=== PATIENT | female | born 1950 | race Caucasian/White ===

== ENCOUNTER 2018-03-15 08:55 | Day surgery (SDC) | payer MEDICARE, OTHER ==
[2018-03-14 09:52] LABS: HEMATOCRIT 38.2 % (35.0-45.0); HEMOGLOBIN 12.4 g/dl (12.0-16.0); MEAN CORPUSCULAR HEMOGLOBIN 29.8 PG (27.0-31.0); MEAN CORPUSCULAR HGB CONC 32.6 % (33.0-36.5); MEAN CORPUSCULAR VOLUME 91.4 FL (78-98); MEAN PLATELET VOLUME 12.8 FL (7.4-10.4); PLATELET COUNT 172 X10'3 (140-440); WHITE BLOOD COUNT 9.9 X10'3 (4.5-11.0)
[2018-03-14 10:01] LABS: PARTIAL THROMBOPLASTIN TIME 24 SECONDS (22-32); PROTHROMBIN TIME 10.8 SECONDS (9.0-12.0); RED BLOOD COUNT 4.21 X10'6 (4.20-5.60)
[2018-03-14 10:04] LABS: ANION GAP 12 (8-16); BLOOD UREA NITROGEN 10 MG/DL (7-18); BUN/CREATININE RATIO 13.2 (6.6-38.0); CALCIUM 8.4 MG/DL (8.5-10.1); CHLORIDE 103 MMOL/L (99-107); CREATININE 0.76 MG/DL (0.40-0.90); GLUCOSE 165 MG/DL (70-104); LARGE PLATELETS FEW; PLATELET ESTIMATE NORMAL; POTASSIUM 4.1 MMOL/L (3.5-5.1); SODIUM 141 MMOL/L (135-145); TOTAL CARBON DIOXIDE 26.1 MMOL/L (24-32); TOTAL CELLS COUNTED 100; eGFR 76 ML/MIN
[2018-03-14 10:05] LABS: ACANTHOCYTES FEW
[2018-03-14 10:06] LABS: MICROCYTOSIS FEW
[2018-03-15] VITALS (14 sets, daily range): BP systolic 73–182; BP diastolic 37–86
[~2018-03-15] VITALS: Ht 165.1 cm; Wt 89.8 kg
[~2018-03-15 08:55] MED LIST: ALBU8.5H8 IH; ASPI-611 PO; CARV-50 PO; FERR325T32 PO; FURO20TA4 PO; INSU100V9 SQ; ISOS60TA4 PO; LISI30TA4 PO; NITR0.4T51 SL; OXYC-150 PO; PANT40TA4 PO; PRAM0.5T3 PO; PRAV40TA3 PO; SERT100T PO; SPIR25TA5 PO; TIZA4CAP6 PO; TRAM50TA2 PO
[2018-03-15] MEDS ORDERED: normal saline 1000ml 1,000 ML IV SCH (09:40)
[2018-03-15] MEDS ORDERED: diphenhydrAMINE 25mg capsule PO PRN (09:40)
[2018-03-15] MEDS ORDERED: LORazepam 0.5 MG tablet PO PRN (09:40)
[2018-03-15] MEDS ORDERED: HYDR-565 PO (09:44)
[2018-03-15] MEDS ORDERED: BUDE10.2 INH (09:44)
[2018-03-15] MEDS ORDERED: METF-438 PO ×2 (09:44)
[2018-03-15] MEDS ORDERED: midazolam 2 mg/2 ml injection ONE (12:25)
[2018-03-15] MEDS ORDERED: heparin 1,000unit/ml 10ml vial 10 ML ONE (12:25)
[2018-03-15] MEDS ORDERED: LIDOcaine 1% 30ml preserv. free vial ONE (12:25)
[2018-03-15] MEDS ORDERED: fentaNYL/PF 50MCG/1 ML 2ML syringe ONE (12:25)
[2018-03-15] MEDS ORDERED: nitroGLYCERIN-Tridil 50MG/D5W 250 ML IV ONE (12:25)
[2018-03-15] MEDS ORDERED: iohexol 350 MG/ML 50ML vial IV ONE (12:25)
[2018-03-15] MEDS ORDERED: iohexol 350MG/ML 100ml bottle IV ONE (12:25)
[2018-03-15] MEDS ORDERED: morphine 2 MG/ML inj. syringe IV PRN (15:10)
[2018-03-15] MEDS ORDERED: morphine 4 MG/ML inj SYRINge IV PRN (15:10)
[2018-03-15] MEDS ORDERED: HYDROcodone/acetaminophen 10/325mg tab PO PRN (16:15)
[2018-03-15] MEDS ORDERED: OXAZEpam 15mg capsule PO PRN (16:15)
== END 2018-03-15 19:45 | disposition home or self-care (01) ==
LOC: SSTAY O 08:55
PROVIDERS: ATTEND Internal Medicine Cardiovascular Disease
DX: I25.110 Atherosclerotic heart disease of native coronary artery with unstable angina pectoris (principal); I11.0 Hypertensive heart disease with heart failure; I50.9 Heart failure, unspecified; E78.5 Hyperlipidemia, unspecified; J44.9 Chronic obstructive pulmonary disease, unspecified; E66.9 Obesity, unspecified; I42.8 Other cardiomyopathies; M79.7 Fibromyalgia; F17.210 Nicotine dependence, cigarettes, uncomplicated; K21.9 Gastro-esophageal reflux disease without esophagitis; M19.90 Unspecified osteoarthritis, unspecified site; F32.9 Major depressive disorder, single episode, unspecified; F41.8 Other specified anxiety disorders; Z68.32 Body mass index [BMI] 32.0-32.9, adult; Z95.810 Presence of automatic (implantable) cardiac defibrillator; Z95.5 Presence of coronary angioplasty implant and graft; Z79.891 Long term (current) use of opiate analgesic; Z79.84 Long term (current) use of oral hypoglycemic drugs; Z91.048 Other nonmedicinal substance allergy status; Z79.82 Long term (current) use of aspirin; Z79.4 Long term (current) use of insulin; Z87.01 Personal history of pneumonia (recurrent); Z82.49 Family history of ischemic heart disease and other diseases of the circulatory system; Z90.81 Acquired absence of spleen; Z79.899 Other long term (current) drug therapy; Z88.8 Allergy status to other drugs, medicaments and biological substances; Z98.890 Other specified postprocedural states; Z72.89 Other problems related to lifestyle
CPT/HCPCS: 36415; 80048; 82948; 85025; 85610; 85730; 93005; 93458; 99152; 99153; A6257; C1760; C1769; J1644; J2250; J3010; J3490; J7030; Q0163; Q9967; A4620

== ENCOUNTER 2018-10-07 09:48 | Inpatient (IN) | payer MEDICARE, OTHER | END 2018-10-09 12:14 | disposition home or self-care (01) | LOC: ER 09:48 → ED HOLD 14:38 → PCU 3S 14:40 | DX: I50.23 Acute on chronic systolic (congestive) heart failure (principal); J96.20 Acute and chronic respiratory failure, unspecified whether with hypoxia or hypercapnia; J44.1 Chronic obstructive pulmonary disease with (acute) exacerbation ==

== ENCOUNTER 2019-04-04 14:18 | Inpatient (IN) | payer MEDICARE, OTHER ==
[~2019-04-04] VITALS: Ht 165.1 cm; Wt 75.6 kg
[~2019-04-04 14:18] MED LIST changes: +ALBU2.5V7 NEB; -ASPI-611 PO; +BUDE10.2 INH; -CARV-50 PO; +CARV25TA PO; -FERR325T32 PO; +FURO-150 PO; -FURO20TA4 PO; +INSU100I25 SQ; -INSU100V9 SQ; +METF-438 PO; -OXYC-150 PO; -PANT40TA4 PO; -TRAM50TA2 PO
[2019-04-04 14:54] LABS: BASOPHILS # (AUTO) 0.1 X10'3 (0-0.2); EOSINOPHILS # (AUTO) 0.1 X10'3 (0-0.9); MEAN CORPUSCULAR HEMOGLOBIN 29.7 PG (27.0-31.0); PLATELET COUNT 169 X10'3 (140-440)
[2019-04-04 14:56] LABS: BASOPHILS % (AUTO) 1.4 % (0-1); EOSINOPHILS % (AUTO) 1.1 % (0-6); HEMATOCRIT 35.8 % (35.0-45.0); LYMPHOCYTES # (AUTO) 1.6 X10'3 (1.1-4.8); LYMPHOCYTES % (AUTO) 15.2 % (21-51); MEAN CORPUSCULAR HGB CONC 33.6 g/dL (33.0-36.5); MEAN CORPUSCULAR VOLUME 88.5 FL (78-98); MEAN PLATELET VOLUME 11.1 FL (7.4-10.4); MONOCYTES % (AUTO) 9.5 % (2-12); NEUTROPHILS # (AUTO) 7.5 X10'3 (1.8-7.7); NEUTROPHILS % (AUTO) 72.8 % (42-75); RED BLOOD COUNT 4.04 X10'6 (4.20-5.60); RED CELL DISTRIBUTION WIDTH 14.8 % (11.5-14.5); WHITE BLOOD COUNT 10.3 X10'3 (4.5-11.0)
[2019-04-04 15:09] LABS: ALANINE AMINOTRANSFERASE 31 U/L (12-78); ALBUMIN 3.4 G/DL (3.4-5.0); ALBUMIN/GLOBULIN RATIO 0.9 (1.1-1.5); ALKALINE PHOSPHATASE 78 IU/L (46-116); ANION GAP 5 (8-16); ASPARTATE AMINO TRANSFERASE 23 U/L (10-37); BILIRUBIN,TOTAL 1.1 MG/DL (0.1-1.0); BLOOD UREA NITROGEN 24 MG/DL (7-18); BUN/CREATININE RATIO 27.9 (6.6-38.0); CALCIUM 9.2 MG/DL (8.5-10.1); CHLORIDE 96 MMOL/L (99-107); CREATININE 0.86 MG/DL (0.40-0.90); GLUCOSE 162 MG/DL (70-104); SODIUM 127 MMOL/L (135-145); TOTAL CARBON DIOXIDE 26.1 MMOL/L (24-32); TOTAL PROTEIN 7.2 G/DL (6.4-8.2); eGFR 66 ML/MIN
[2019-04-04 15:41] LABS: PLATELET ESTIMATE NORMAL
[2019-04-04 15:43] LABS: ACANTHOCYTES 2+; BURR CELLS 2+; HYPOCHROMASIA 1+; POIKILOCYTOSIS 3+; SCHISTOCYTES 1+
[2019-04-04] MEDS ORDERED: furosemide 10 MG/1 ML 10ml inj IV ONE (15:45)
[2019-04-04 16:19] LABS: D-DIMER 1.13 MG/L FEU (0-0.50); PARTIAL THROMBOPLASTIN TIME 26 SECONDS (22-32)
[2019-04-04] MEDS ORDERED: iohexol 350MG/ML 100ml bottle IV ONE (16:50)
--- NOTE | 2019-04-04 16:52 | NUR ---
PT. OFF TO CT VIA CLIENT SERVER PROGRAMMER
[2019-04-04] MEDS ORDERED: acetaminophen 325mg tablet PO PRN ×2 (17:45)
[2019-04-04] MEDS ORDERED: magnesium hydroxide 30ml (MOM) UD suspension PO PRN (17:45)
[2019-04-04] MEDS ORDERED: mag hydrox/Alum hydrox/simeth 30ml oral suspension PO PRN (17:45)
[2019-04-04] MEDS ORDERED: metoclopramide 5 mg/ml inj IV PRN (17:45)
[2019-04-04] MEDS: nicotine 14mg patch - 24hr TD SCH (17:45)
[2019-04-04] MEDS ORDERED: morphine 2 MG/ML inj. syringe IV PRN ×2 (17:45)
[2019-04-04] MEDS ORDERED: HYDROcodone/acetaminophen 5mg/325mg tablet PO PRN (17:45)
[2019-04-04] MEDS ORDERED: ondansetron/PF 4mg/2ml inj IV PRN (17:45)
[2019-04-04] MEDS ORDERED: magnesium 4gm in 100ml NS 100 ML IV PRN (17:45)
[2019-04-04] MEDS ORDERED: magnesium 2GM in 50ml NS 50 ML IV PRN (17:45)
[2019-04-04] MEDS ORDERED: bisacodyl 10mg suppository rectal RC PRN (17:45)
[2019-04-04] MEDS ORDERED: magnesium Cl slow-release 64mg tablet PO PRN (17:45)
[2019-04-04] MEDS ORDERED: diphenhydrAMINE 50 mg/ml inj IV PRN (17:45)
[2019-04-04] MEDS ORDERED: potassium CL 10mEq/100ml bag 100 ML IV PRN ×2 (17:45)
[2019-04-04] MEDS ORDERED: ipratropium/albuterol 3ml nebule NEB PRN (17:45)
[2019-04-04] MEDS ORDERED: diphenhydrAMINE 25mg capsule PO PRN (17:45)
[2019-04-04] MEDS ORDERED: potassium Cl 20 mEq SR tablet PO PRN ×2 (17:45)
[2019-04-04 18:07] LABS: URINE AMPHETAMINE SCREEN NEGATIVE (Neg); URINE BARBITUATE SCREEN NEGATIVE (Neg); URINE BENZODIAZEPINES SCREEN NEGATIVE (Neg); URINE CANNABINOID SCREEN NEGATIVE (Neg); URINE COCAINE SCREEN NEGATIVE (Neg); URINE METHADONE SCREEN NEGATIVE (Neg); URINE OPIATE SCREEN NEGATIVE (Neg); URINE PHENCYCLIDINE SCREEN NEGATIVE (Neg)
[2019-04-04 18:27] LABS: PHOSPHORUS 3.7 MG/DL (2.3-4.5)
[2019-04-04 18:33] LABS: ETHANOL < 0.010 GM/DL (0.0-0.010)
[2019-04-04] MEDS ORDERED: PANT40TA4 PO (18:43)
[2019-04-04] MEDS ORDERED: OXYC-511 PO (18:43)
[2019-04-04] MEDS ORDERED: FURO20TA4 PO (18:43)
[2019-04-04 19:06] LABS: HEMOGLOBIN A1C 7.4 % (4.5-6.2)
[2019-04-04] MEDS ORDERED: nitroGLYCERIN 0.4mg SUBLingual tab SL PRN (19:10)
[2019-04-04] MEDS: pantoprazole 40mg Tablet.DR PO SCH (20:05)
[2019-04-04] MEDS: carVEDilol 12.5mg tablet PO SCH (20:05)
[2019-04-04] MEDS: oxyCODONE/APAP 10/325mg tablet PO SCH (20:05)
[2019-04-04] MEDS: furosemide 40mg/4ml inj IV SCH (20:06)
[2019-04-04] MEDS: cyclobenzaprine 10mg tablet PO PRN (20:06)
--- NOTE | 2019-04-04 20:28 | NUR ---
lab at bedside for 6hr trop
--- NOTE | 2019-04-04 20:57 | NUR ---
Patient in room ED 1. I have received report from Leah SOTO in the ED and had the opportunity to ask questions and awaiting for arrival of patient to the PCU unit.
[2019-04-04] MEDS ORDERED: temazepam 15mg capsule PO PRN (21:00)
[2019-04-04] MEDS: budesonide 0.5mg/2ml UD nebule IH SCH (21:00)
[2019-04-04] MEDS: albuterol 2.5 MG/3 ML nebule NEB SCH (21:01)
--- NOTE | 2019-04-04 21:30 | NUR ---
Patient arrived to the PCU unit at this time from the ED and went to room 3015A. She is alert and oriented and able to make her needs known. She is able to ambulate from the gurney to the bed independently with no issues. Vitals are stable. 2 RN skin check preformed and yeasty rash noted to groin and pannus area. Patient educated about the call light system. All safety precautions in place. Bed in LL position, SRx2, call light in reach. Will continue to monitor for changes.
[2019-04-04 21:39] VITALS: BP 113/56
[2019-04-04] MEDS: isosorbide mononitrate 30mg tab.SR.24H PO SCH (21:43)
[2019-04-04] MEDS: pramipexole 0.25mg tablet PO SCH (21:43)
[2019-04-04 22:00] VITALS: BP 114/53
[2019-04-04] MEDS: pravastatin 40mg tablet PO SCH (22:06)
[2019-04-05] MEDS: HYDROcodone/acetaminophen 10/325mg tab PO PRN ×3 (00:51→15:31)
[2019-04-05 02:00] VITALS: BP 117/57
[2019-04-05 03:16] LABS: HEMOGLOBIN 10.7 g/dl (12.0-16.0); WHITE BLOOD COUNT 8.4 X10'3 (4.5-11.0)
[2019-04-05 03:17] LABS: MEAN CORPUSCULAR HEMOGLOBIN 30.1 PG (27.0-31.0); MEAN CORPUSCULAR HGB CONC 34.4 g/dL (33.0-36.5); MEAN CORPUSCULAR VOLUME 87.6 FL (78-98); MEAN PLATELET VOLUME 11.3 FL (7.4-10.4); PLATELET COUNT 143 X10'3 (140-440); RED BLOOD COUNT 3.54 X10'6 (4.20-5.60)
[2019-04-05 03:42] LABS: ALBUMIN 3.1 G/DL (3.4-5.0); ANION GAP 8 (8-16); BLOOD UREA NITROGEN 23 MG/DL (7-18); BUN/CREATININE RATIO 28.8 (6.6-38.0); CALCIUM 8.7 MG/DL (8.5-10.1); CHLORIDE 95 MMOL/L (99-107); CHOL/HDL RATIO 2.4 (0.00-4.99); CHOLESTEROL 102 MG/DL (0-200); GLUCOSE 136 MG/DL (70-104); HDL CHOLESTEROL 43 MG/DL (35-60); LDL CHOLESTEROL 56 MG/DL (50-100); PHOSPHORUS 4.2 MG/DL (2.3-4.5); POTASSIUM 4.2 MMOL/L (3.5-5.1); SODIUM 129 MMOL/L (135-145); TOTAL CARBON DIOXIDE 25.6 MMOL/L (24-32); TRIGLYCERIDES 40 MG/DL (20-135); eGFR 72 ML/MIN
--- NOTE | 2019-04-05 03:50 | NUR ---
Magnesium level came back at 1.[address] Webb and he is aware, starting pt on magnesium IV per protocol.
[2019-04-05] MEDS: albuterol 2.5 MG/3 ML nebule NEB SCH ×4 (03:52→20:18)
--- NOTE | 2019-04-05 05:38 | NUR ---
Orientee documentation: I have reviewed and agree with all interventions, assessments performed and documented by Tc RN. Orientee Medication Administration: For this medication-pass time frame, all medication were reviewed, dispensed, administered and documented per hospital policy by Tc RN.
[2019-04-05 06:00] VITALS: BP 108/44
--- NOTE | 2019-04-05 06:42 | NUR ---
Problems reprioritized. Patient report given, questions answered & plan of care reviewed with Valentin SOTO.
[2019-04-05] MEDS: pantoprazole 40mg Tablet.DR PO SCH ×2 (07:37→21:10)
[2019-04-05] MEDS: oxyCODONE/APAP 10/325mg tablet PO SCH ×2 (07:37→21:11)
[2019-04-05] MEDS: enoxaparin 40mg/0.4ml syringe SQ SCH (07:39)
[2019-04-05] MEDS: nicotine 14mg patch - 24hr TD SCH (07:40)
[2019-04-05] MEDS ORDERED: FLU VACC QS2019-20 36MOS UP/PF 60 MCG/0.5 ML SYRINGE IMVAC ONE ×2 (08:00→10:00)
[2019-04-05] MEDS: budesonide 0.5mg/2ml UD nebule IH SCH ×2 (08:29→20:18)
[2019-04-05] MEDS: K and/or MAG REPLACEMENT MC SCH (08:49)
[2019-04-05] MEDS: spironolactone 25 MG tablet PO SCH (09:37)
[2019-04-05] MEDS: furosemide 40mg/4ml inj IV SCH ×2 (09:38→21:11)
[2019-04-05] MEDS: lisinopril 10 MG tablet PO SCH (10:33)
[2019-04-05] MEDS: carVEDilol 12.5mg tablet PO SCH ×2 (10:33→21:09)
[2019-04-05 11:00] VITALS: BP 110/48
[2019-04-05] MEDS ORDERED: dextrose ORAL solution 15 GM/59 ML bottle PO PRN ×2 (11:20)
[2019-04-05] MEDS ORDERED: glucagon, human recombinant 1mg kit SUBCUT PRN (11:20)
[2019-04-05] MEDS ORDERED: dextrose 50%-water 50ml dispensing syringe IV PRN ×2 (11:20)
[2019-04-05] MEDS ORDERED: insulin Lispro (HumaLOG) vial - multi-dose SQ SCH (11:20)
[2019-04-05] MEDS ORDERED: MESSAGE TO PHARMACY PO ONE (11:20)
[2019-04-05 15:00] VITALS: BP 101/41
[2019-04-05] MEDS: cyclobenzaprine 10mg tablet PO PRN (15:30)
--- NOTE | 2019-04-05 16:57 | NUR ---
Malnutrition consult: Per consult pt reports wt loss of 100 lbs in the last year with UBW 240 lbs. Pt and SO seen at bedside continues to report 100-115 lb wt loss in the last year. Per documented wt hx pt weighed 91.8 kg 03/03/18 using standing scale and 79.5 kg 10/08/18 also using standing scale, current documented wt is 76.7 kg using bed scale. Given documented wt hx it appears pt with 12 kg wt loss between February of last year and September of this year however patient's weight has been overall stable this year. Pt reports difficulty swallowing d/t esophageal stricture s/p BSS this morning with ST recs full liquid diet d/t difficulty with solids and pt reporting she will be getting esophageal dilation during this admit. Pt with 25% PO intake at breakfast this morning d/t difficulty swallowing however with 100% PO intake at lunch. Pt reports eating small meals q hour RESIDENTIAL SALES ASSOCIATE trialing different foods. Pt states no food in in particular contributes to difficulty swallowing and reports esophageal dilation x 2 RESIDENTIAL SALES ASSOCIATE however pending admission to [facility] for further dilation. Pt with no edema, decrease in muscle strength, and no visible fat and muscle wasting. Pt currently does not meet criteria for malnutrition. Pt with A1c 7.4 up from 6.5 in September of this year. Pt reports she has d/c'ed insulin and decreased Metformin rx d/t improving BG levels. Pt states she previously was checking Bg levels 2 times a day however has recently stopped taking as much care for her DM as she used to. Pt declined written DM education at this time. RD contact information was provided. Pt currently on full liquid heart healthy diet with 1.5L fluid restriction. D/w RN and potential for fluid liberalization while on full liquid diet as well as the addition of the CHO controlled diet given hx T2DM. Will continue to follow. Addendum: 04/05/19 at [address] Amended: Links added.
[2019-04-05 18:00] VITALS: BP 107/54
--- NOTE | 2019-04-05 18:00 | NUR ---
Patient in room PCU 3015. I have received report from CHARLES Hanson and had the opportunity to ask questions and assume patient care.
--- NOTE | 2019-04-05 18:20 | NUR ---
Patient in room PCU 3015. I have received report from CHARLES Hanson and had the opportunity to ask questions and assume patient care.
--- NOTE | 2019-04-05 18:51 | NUR ---
Problems reprioritized. Patient report given, questions answered & plan of care reviewed with Naila SOTO.
[2019-04-05] MEDS ORDERED: insulin glargine (Lantus) pen - multi-dose SQ SCH (21:00)
[2019-04-05] MEDS: isosorbide mononitrate 30mg tab.SR.24H PO SCH (21:09)
[2019-04-05] MEDS: pramipexole 0.25mg tablet PO SCH (21:09)
[2019-04-05] MEDS: pravastatin 40mg tablet PO SCH (21:09)
[2019-04-05 22:00] VITALS: BP 105/43
[2019-04-06 02:00] VITALS: BP 104/42
[2019-04-06] MEDS: albuterol 2.5 MG/3 ML nebule NEB SCH ×2 (02:36→08:58)
[2019-04-06] MEDS: HYDROcodone/acetaminophen 10/325mg tab PO PRN (03:10)
[2019-04-06 06:00] VITALS: BP 101/45
--- NOTE | 2019-04-06 06:00 | NUR ---
Student documentation: I have reviewed and agree with all interventions, assessments performed and documented by CHARLES Fragoso.
[2019-04-06 06:03] LABS: HEMOGLOBIN 10.9 g/dl (12.0-16.0); MEAN CORPUSCULAR HEMOGLOBIN 29.9 PG (27.0-31.0); MEAN CORPUSCULAR HGB CONC 34.1 g/dL (33.0-36.5); MEAN CORPUSCULAR VOLUME 87.7 FL (78-98); MEAN PLATELET VOLUME 11.2 FL (7.4-10.4); PLATELET COUNT 169 X10'3 (140-440); RED BLOOD COUNT 3.65 X10'6 (4.20-5.60); RED CELL DISTRIBUTION WIDTH 14.5 % (11.5-14.5); WHITE BLOOD COUNT 7.9 X10'3 (4.5-11.0)
[2019-04-06 06:07] LABS: ALBUMIN 3.2 G/DL (3.4-5.0); ANION GAP 5 (8-16); BLOOD UREA NITROGEN 20 MG/DL (7-18); BUN/CREATININE RATIO 23.8 (6.6-38.0); CALCIUM 9.7 MG/DL (8.5-10.1); CHLORIDE 93 MMOL/L (99-107); CREATININE 0.84 MG/DL (0.40-0.90); GLUCOSE 112 MG/DL (70-104); MAGNESIUM 1.5 MG/DL (1.5-2.4); PHOSPHORUS 4.5 MG/DL (2.3-4.5); POTASSIUM 4.5 MMOL/L (3.5-5.1); SODIUM 129 MMOL/L (135-145); eGFR 68 ML/MIN
--- NOTE | 2019-04-06 06:10 | NUR ---
Problems reprioritized. Patient report given, questions answered & plan of care reviewed with CHARLES Hanson.
--- NOTE | 2019-04-06 06:46 | NUR ---
Patient in room PCU 3015. I have received report from Evelyn SOTO and had the opportunity to ask questions and assume patient care.
[2019-04-06] MEDS: furosemide 40mg/4ml inj IV SCH (07:15)
[2019-04-06] MEDS: enoxaparin 40mg/0.4ml syringe SQ SCH (07:16)
[2019-04-06] MEDS: spironolactone 25 MG tablet PO SCH (07:16)
[2019-04-06] MEDS: pantoprazole 40mg Tablet.DR PO SCH (07:16)
[2019-04-06] MEDS: oxyCODONE/APAP 10/325mg tablet PO SCH (07:17)
[2019-04-06] MEDS: K and/or MAG REPLACEMENT MC SCH (07:18)
[2019-04-06] MEDS: nicotine 14mg patch - 24hr TD SCH (08:00)
[2019-04-06] MEDS: carVEDilol 12.5mg tablet PO SCH (08:25)
[2019-04-06 08:26] VITALS: BP_SYST 102
[2019-04-06] MEDS: lisinopril 10 MG tablet PO SCH (08:26)
[2019-04-06] MEDS: budesonide 0.5mg/2ml UD nebule IH SCH (08:58)
[2019-04-06] MEDS ORDERED: FURO20TA4 PO (09:10)
--- NOTE | 2019-04-06 11:04 | NUR ---
Patient is stable for discharge per md orders, discharge instructions reviewed w/ pt and and all questions answered, [facility] [place] per pt preference, tele monitor removed and returned, PIV dc'ed and clean dry dressing in place, pt wheeled down to lobby with hospital staff, pt discharges at 1045 w/ in private vehicle, all belongings w/ pt at time of discharge.
== END 2019-04-06 11:10 | disposition home or self-care (01) | DRG 291 ==
LOC: ER 14:19 → ED HOLD 17:41 → PCU 3S 21:05
PROVIDERS: ADMIT Family Medicine; ATTEND Internal Medicine
PROC: B32T1ZZ Computerized Tomography (CT Scan) of Left Pulmonary Artery using Low Osmolar Contrast (ICD-10-PCS; principal; 2019-04-04)
PROC: B3201ZZ Computerized Tomography (CT Scan) of Thoracic Aorta using Low Osmolar Contrast (ICD-10-PCS; 2019-04-04)
PROC: B32S1ZZ Computerized Tomography (CT Scan) of Right Pulmonary Artery using Low Osmolar Contrast (ICD-10-PCS; 2019-04-04)
DX: I11.0 Hypertensive heart disease with heart failure (principal); E43 Unspecified severe protein-calorie malnutrition; E87.1 Hypo-osmolality and hyponatremia; I50.23 Acute on chronic systolic (congestive) heart failure; I27.20 Pulmonary hypertension, unspecified; M79.7 Fibromyalgia; I37.1 Nonrheumatic pulmonary valve insufficiency; E11.9 Type 2 diabetes mellitus without complications; E78.5 Hyperlipidemia, unspecified; F17.200 Nicotine dependence, unspecified, uncomplicated; I25.10 Atherosclerotic heart disease of native coronary artery without angina pectoris; J43.9 Emphysema, unspecified; K21.9 Gastro-esophageal reflux disease without esophagitis; I43 Cardiomyopathy in diseases classified elsewhere; D64.9 Anemia, unspecified; E86.1 Hypovolemia; F32.9 Major depressive disorder, single episode, unspecified; F41.9 Anxiety disorder, unspecified; G89.29 Other chronic pain; I95.9 Hypotension, unspecified; M54.9 Dorsalgia, unspecified; Z88.8 Allergy status to other drugs, medicaments and biological substances; Z79.84 Long term (current) use of oral hypoglycemic drugs; Z79.899 Other long term (current) drug therapy; Z90.710 Acquired absence of both cervix and uterus; Z90.81 Acquired absence of spleen; Z95.5 Presence of coronary angioplasty implant and graft; Z95.810 Presence of automatic (implantable) cardiac defibrillator; Z82.49 Family history of ischemic heart disease and other diseases of the circulatory system; Z82.5 Family history of asthma and other chronic lower respiratory diseases; Z68.27 Body mass index [BMI] 27.0-27.9, adult
CPT/HCPCS: 36415; 71045; 71275; 80048; 80053; 80061; 80305; 80320; 82948; 83036; 83735; 83880; 84100; 84443; 84484; 85025; 85027; 85379; 85610; 85730; 87081; 92508; 92616; 93005; 93306; 94640; 94760; 96374; 97112; 97116; 97162; 97530; 99285; G0378; J1650; J1815; J1940; J3475; J7626; Q2037; Q9967

== ENCOUNTER 2019-05-04 14:30 | Inpatient (IN) | payer MEDICARE, OTHER ==
[~2019-05-04] VITALS: Ht 165.1 cm; Wt 82.3 kg
[~2019-05-04 14:30] MED LIST changes: -ALBU2.5V7 NEB; -FURO-150 PO; +FURO20TA4 PO; -INSU100I25 SQ; +OXYC-511 PO; +PANT40TA4 PO; -SERT100T PO
[2019-05-04 16:33] LABS: BASOPHILS # (AUTO) 0.2 X10'3 (0-0.2); EOSINOPHILS # (AUTO) 0.2 X10'3 (0-0.9); LYMPHOCYTES # (AUTO) 1.7 X10'3 (1.1-4.8); MONOCYTES # (AUTO) 1.1 X10'3 (0-0.9); NEUTROPHILS # (AUTO) 7.6 X10'3 (1.8-7.7); WHITE BLOOD COUNT 10.8 X10'3 (4.5-11.0)
[2019-05-04 16:34] LABS: BASOPHILS % (AUTO) 1.7 % (0-1); HEMOGLOBIN 11.2 g/dl (12.0-16.0); LYMPHOCYTES % (AUTO) 15.7 % (21-51); MEAN CORPUSCULAR HEMOGLOBIN 28.8 PG (27.0-31.0); MEAN CORPUSCULAR HGB CONC 33.9 g/dL (33.0-36.5); MEAN CORPUSCULAR VOLUME 84.9 FL (78-98); MEAN PLATELET VOLUME 10.5 FL (7.4-10.4); MONOCYTES % (AUTO) 10.3 % (2-12); NEUTROPHILS % (AUTO) 70.3 % (42-75); PLATELET COUNT 166 X10'3 (140-440); RED BLOOD COUNT 3.89 X10'6 (4.20-5.60); RED CELL DISTRIBUTION WIDTH 15.9 % (11.5-14.5)
[2019-05-04 16:50] LABS: ACANTHOCYTES 1+; ALANINE AMINOTRANSFERASE 20 U/L (12-78); ALBUMIN/GLOBULIN RATIO 0.8 (1.1-1.5); ALKALINE PHOSPHATASE 76 IU/L (46-116); ANION GAP 7 (8-16); ANISOCYTOSIS 1+; ASPARTATE AMINO TRANSFERASE 21 U/L (10-37); BILIRUBIN,TOTAL 1.3 MG/DL (0.1-1.0); BLOOD UREA NITROGEN 32 MG/DL (7-18); BUN/CREATININE RATIO 31.7 (6.6-38.0); CHLORIDE 95 MMOL/L (99-107); CREATININE 1.01 MG/DL (0.40-0.90); GLUCOSE 127 MG/DL (70-104); LARGE PLATELETS FEW; MICROCYTOSIS 1+; PLATELET ESTIMATE NORMAL; POTASSIUM 3.7 MMOL/L (3.5-5.1); SODIUM 131 MMOL/L (135-145); TARGET CELLS FEW; TOTAL PROTEIN 6.8 G/DL (6.4-8.2); eGFR 55 ML/MIN
[2019-05-04 16:51] LABS: SCHISTOCYTES FEW
[2019-05-04 17:27] LABS: MAGNESIUM 0.8 MG/DL (1.5-2.4)
[2019-05-04] MEDS ORDERED: magnesium 2GM in 50ml NS 50 ML IV ONE (17:35)
[2019-05-04] MEDS ORDERED: metoprolol tartrate 1mg/ml inj IV ONE (17:50)
[2019-05-04] MEDS ORDERED: magnesium hydroxide 30ml (MOM) UD suspension PO PRN (17:50)
[2019-05-04] MEDS ORDERED: magnesium 4gm in 100ml NS 100 ML IV PRN (17:50)
[2019-05-04] MEDS ORDERED: mag hydrox/Alum hydrox/simeth 30ml oral suspension PO PRN (17:50)
[2019-05-04] MEDS ORDERED: HYDROcodone/acetaminophen 5mg/325mg tablet PO PRN (17:50)
[2019-05-04] MEDS ORDERED: ondansetron/PF 4mg/2ml inj IV PRN (17:50)
[2019-05-04] MEDS ORDERED: magnesium 2GM in 50ml NS 50 ML IV PRN (17:50)
[2019-05-04] MEDS ORDERED: acetaminophen 325mg tablet PO PRN ×2 (17:50)
[2019-05-04] MEDS ORDERED: potassium CL 10mEq/100ml bag 100 ML IV PRN ×2 (17:50)
[2019-05-04] MEDS ORDERED: potassium Cl 20 mEq SR tablet PO PRN ×2 (17:50)
[2019-05-04] MEDS ORDERED: nitroGLYCERIN 0.4mg SUBLingual tab SL PRN (18:20)
[2019-05-04] MEDS ORDERED: tizanidine 4mg tablet PO PRN (18:20)
[2019-05-04] MEDS ORDERED: insulin Lispro (HumaLOG) vial - multi-dose SQ SCH (18:25)
[2019-05-04] MEDS ORDERED: MESSAGE TO PHARMACY PO ONE (18:25)
[2019-05-04] MEDS ORDERED: glucagon, human recombinant 1mg kit SUBCUT PRN (18:25)
[2019-05-04] MEDS ORDERED: dextrose ORAL solution 15 GM/59 ML bottle PO PRN ×2 (18:25)
[2019-05-04] MEDS ORDERED: dextrose 50%-water 50ml dispensing syringe IV PRN ×2 (18:25)
[2019-05-04] MEDS ORDERED: ipratropium/albuterol 3ml nebule NEB PRN (18:35)
[2019-05-04] MEDS ORDERED: FURO80TA87 PO (18:36)
[2019-05-04] MEDS ORDERED: INSU100V12 SQ (18:36)
[2019-05-04] MEDS ORDERED: GABA-532 PO (18:36)
[2019-05-04] MEDS ORDERED: ALBU18HF2 INH (18:36)
[2019-05-04] MEDS ORDERED: METF500T PO (18:36)
[2019-05-04] MEDS ORDERED: SERT25TA PO (18:36)
[2019-05-04] MEDS: magnesium Cl slow-release 64mg tablet PO PRN ×2 (19:07→22:29)
[2019-05-04] MEDS: HYDROcodone/acetaminophen 10/325mg tab PO PRN (19:07)
--- NOTE | 2019-05-04 19:16 | NUR ---
report called to cherelle rn, pcu, pt is a&ox4 and plite and cooperative. given norco 10/ for chronic back pain exacerbation of 7 out of 10 and mag tabs per protocol. pts 2 gm mag inpb is infusing now also.
[2019-05-04 19:30] VITALS: BP 92/52
[2019-05-04] MEDS: pantoprazole 40mg Tablet.DR PO SCH (20:08)
[2019-05-04] MEDS: furosemide 40mg/4ml inj IV SCH (20:08)
[2019-05-04] MEDS: CefTRIAXone/D5W-Rocephin 1gm 50 ML IV SCH (20:09)
[2019-05-04] MEDS: oxyCODONE/APAP 10/325mg tablet PO SCH (20:09)
[2019-05-04 20:23] VITALS: BP 104/69
[2019-05-04] MEDS: pramipexole 0.25mg tablet PO SCH (20:27)
[2019-05-04] MEDS: gabapentin 300mg capsule PO SCH (20:27)
[2019-05-04] MEDS ORDERED: temazepam 15mg capsule PO PRN (21:00)
[2019-05-04] MEDS: insulin glargine (Lantus) pen - multi-dose SQ SCH (21:00)
--- NOTE | 2019-05-04 21:03 | NUR ---
Page Sent promotional table spacer PAGER ID: [phone] MESSAGE: [id number] Lu Griffith here for new onset afib and history of CHF has coreg and Imdur ordered. there are no parameters for either med. you want systolic less than 100 and HR less than 60 for coreg? Any parameters for imdur? Carla [phone]
--- NOTE | 2019-05-04 21:57 | NUR ---
Page Sent promotional table spacer PAGER ID: [phone] MESSAGE: [id number] Lu Griffith here for new onset afib and history of CHF has coreg and Imdur ordered. there are no parameters for either med. you want systolic less than 100 and HR less than 60 for coreg? Any parameters for imdur? Carla [phone]
[2019-05-04] MEDS: ipratropium/albuterol 3ml nebule NEB SCH ×2 (22:03→22:08)
--- NOTE | 2019-05-04 22:17 | NUR ---
Tried to contact Dr. Chapman twice via page, hasn't responded. There are no parameters for the coreg or imdur. waiting to hear back from Dr. Chapman to approve the medications since her systolic is 102
[2019-05-04] MEDS: pravastatin 40mg tablet PO SCH (22:21)
[2019-05-04 22:22] VITALS: BP 97/63
[2019-05-04 22:32] VITALS: BP 97/63
[2019-05-04 22:37] LABS: PHOSPHORUS 4.3 MG/DL (2.3-4.5)
--- NOTE | 2019-05-04 23:11 | NUR ---
Page Sent PAGER ID: [phone] MESSAGE: [phone] Lu Nacho here for new onset A. Fib Hx of CHF, has Coreg and Imdur ordered, there are no parameters for either. Most Recent vitals: BP 97/63 P 82 O2 96% R 18.- Earle [id number]
[2019-05-04] MEDS: carVEDilol 12.5mg tablet PO SCH (23:16)
--- NOTE | 2019-05-04 23:17 | NUR ---
Dr. Chapman called back and said to hold the coreg and imdur for sbp less than 100 and to hold those medications for tonight and have day shift discuss with hospitalist.
[2019-05-04] MEDS: isosorbide mononitrate 30mg tab.SR.24H PO SCH (23:19)
[2019-05-04] MEDS: magnesium oxide 400mg tablet PO SCH (23:46)
[2019-05-05 03:00] VITALS: BP 111/68
[2019-05-05 04:27] LABS: ALANINE AMINOTRANSFERASE 17 U/L (12-78); ALBUMIN 2.8 G/DL (3.4-5.0); ALBUMIN/GLOBULIN RATIO 0.7 (1.1-1.5); ALKALINE PHOSPHATASE 73 IU/L (46-116); ANION GAP 5 (8-16); ASPARTATE AMINO TRANSFERASE 19 U/L (10-37); BILIRUBIN,TOTAL 1.3 MG/DL (0.1-1.0); BLOOD UREA NITROGEN 32 MG/DL (7-18); CHLORIDE 95 MMOL/L (99-107); GLUCOSE 105 MG/DL (70-104); POTASSIUM 3.5 MMOL/L (3.5-5.1); SODIUM 132 MMOL/L (135-145); TOTAL CARBON DIOXIDE 32.5 MMOL/L (24-32); TOTAL PROTEIN 6.6 G/DL (6.4-8.2); eGFR 55 ML/MIN
[2019-05-05 04:31] LABS: MAGNESIUM 1.1 MG/DL (1.5-2.4); PHOSPHORUS 4.2 MG/DL (2.3-4.5)
[2019-05-05 04:52] LABS: BASOPHILS # (AUTO) 0.1 X10'3 (0-0.2); BASOPHILS % (AUTO) 1.6 % (0-1); EOSINOPHILS # (AUTO) 0.3 X10'3 (0-0.9); HEMATOCRIT 32.2 % (35.0-45.0); HEMOGLOBIN 10.8 g/dl (12.0-16.0); LYMPHOCYTES # (AUTO) 2.3 X10'3 (1.1-4.8); LYMPHOCYTES % (AUTO) 27.1 % (21-51); MEAN CORPUSCULAR HEMOGLOBIN 28.9 PG (27.0-31.0); MEAN CORPUSCULAR HGB CONC 33.6 g/dL (33.0-36.5); MEAN CORPUSCULAR VOLUME 85.9 FL (78-98); MEAN PLATELET VOLUME 11.3 FL (7.4-10.4); MONOCYTES # (AUTO) 0.8 X10'3 (0-0.9); MONOCYTES % (AUTO) 9.4 % (2-12); NEUTROPHILS % (AUTO) 57.9 % (42-75); PLATELET COUNT 162 X10'3 (140-440); RED BLOOD COUNT 3.74 X10'6 (4.20-5.60); RED CELL DISTRIBUTION WIDTH 15.6 % (11.5-14.5); WHITE BLOOD COUNT 8.6 X10'3 (4.5-11.0)
[2019-05-05] MEDS: HYDROcodone/acetaminophen 10/325mg tab PO PRN ×4 (05:53→23:55)
[2019-05-05 06:00] VITALS: BP 120/66
--- NOTE | 2019-05-05 06:18 | NUR ---
Orientee documentation: I have reviewed and agree with all interventions, assessments performed and documented by Earle SOTO.
--- NOTE | 2019-05-05 06:18 | NUR ---
Problems reprioritized. Patient report given, questions answered & plan of care reviewed with Jane SOTO.
[2019-05-05] MEDS: ipratropium/albuterol 3ml nebule NEB SCH ×5 (07:02→23:19)
[2019-05-05 07:28] LABS: LARGE PLATELETS FEW; PLATELET ESTIMATE NORMAL
[2019-05-05] MEDS: K and/or MAG REPLACEMENT MC SCH (08:00)
[2019-05-05] MEDS ORDERED: enoxaparin 40mg/0.4ml syringe SQ SCH (08:00)
[2019-05-05] MEDS: oxyCODONE/APAP 10/325mg tablet PO SCH ×2 (08:04→20:50)
[2019-05-05] MEDS: nystatin 15 GM powder TP SCH ×2 (08:44→13:08)
[2019-05-05] MEDS: magnesium oxide 400mg tablet PO SCH ×4 (08:44→23:57)
[2019-05-05] MEDS: sertraline 50mg tablet PO SCH (08:44)
[2019-05-05] MEDS: carVEDilol 12.5mg tablet PO SCH ×2 (08:44→20:46)
[2019-05-05] MEDS: pantoprazole 40mg Tablet.DR PO SCH ×2 (08:44→20:48)
[2019-05-05] MEDS: spironolactone 25 MG tablet PO SCH (08:45)
[2019-05-05] MEDS: CefTRIAXone/D5W-Rocephin 1gm 50 ML IV SCH (08:46)
[2019-05-05] MEDS: furosemide 40mg/4ml inj IV SCH ×2 (08:46→20:45)
[2019-05-05] MEDS ORDERED: pneumococcal 23-VAL P-sac vacc 25 mcg/0.5ml vial IMVAC ONE (10:00)
[2019-05-05 11:00] VITALS: BP 102/62
[2019-05-05 15:00] VITALS: BP 106/67
--- NOTE | 2019-05-05 15:06 | NUR ---
DM consult: Patient's A1c appears to be trending upwards. Per records pt with A1c 6.3 in September of this year, up to 7.4 in March, now 8.3. Pt seen at bedside states she has increased her Metformin rx and was started back on a low dose of insulin. Pt states she checks her BG more frequently, now 2-3 times a day with no significant elevated BG levels except for one time up to 174. Pt declined written DM education this visit as well as at last visit in March. Pt provided with RD contact information. Pt reports difficulty swallowing, BSS with ST already ordered. Pt had a BSS at last visit 04/06/[address] recs for pt to be on full liquid diet given difficulty with solids. Pt currently on heart healthy CHO controlled diet, agrees to diet restriction to full liquid, d/w RN, to d/w MD. Pt requests soups/broths with meals and diet gelatin BIDLD, d/w dietary. Will continue to follow. Addendum: 05/05/19 at [address] Amended: Links added.
[2019-05-05 18:00] VITALS: BP 108/80
--- NOTE | 2019-05-05 18:40 | NUR ---
Patient in room PCU 3023. I have received report from Jane SOTO and had the opportunity to ask questions and assume patient care.
--- NOTE | 2019-05-05 19:15 | NUR ---
Problems reprioritized. Patient report given, questions answered & plan of care reviewed with Alena SOTO.
[2019-05-05] MEDS: isosorbide mononitrate 30mg tab.SR.24H PO SCH (20:45)
[2019-05-05] MEDS: magnesium Cl slow-release 64mg tablet PO PRN (20:46)
[2019-05-05] MEDS: pramipexole 0.25mg tablet PO SCH (20:47)
[2019-05-05] MEDS: gabapentin 300mg capsule PO SCH (20:49)
[2019-05-05] MEDS: apixaban 5mg tablet PO SCH (20:49)
[2019-05-05] MEDS: insulin glargine (Lantus) pen - multi-dose SQ SCH (21:00)
[2019-05-05] MEDS: pravastatin 40mg tablet PO SCH (21:13)
[2019-05-05 22:00] VITALS: BP 94/65
[2019-05-06] MEDS: nystatin 15 GM powder TP SCH ×2 (00:04→08:41)
[2019-05-06 02:00] VITALS: BP 93/63
[2019-05-06] MEDS: HYDROcodone/acetaminophen 10/325mg tab PO PRN (06:00)
[2019-05-06 06:30] VITALS: BP 90/49
--- NOTE | 2019-05-06 06:34 | NUR ---
Patient in room PCU 3021P. I have received report from Alanna SOTO and had the opportunity to ask questions and assume patient care.
--- NOTE | 2019-05-06 06:37 | NUR ---
Problems reprioritized. Patient report given, questions answered & plan of care reviewed with Nesha SOTO.
[2019-05-06 06:43] LABS: BASOPHILS # (AUTO) 0.1 X10'3 (0-0.2); MONOCYTES # (AUTO) 0.8 X10'3 (0-0.9); RED CELL DISTRIBUTION WIDTH 15.4 % (11.5-14.5)
[2019-05-06 06:46] LABS: BASOPHILS % (AUTO) 1.1 % (0-1); EOSINOPHILS # (AUTO) 0.2 X10'3 (0-0.9); EOSINOPHILS % (AUTO) 2.5 % (0-6); HEMATOCRIT 31.1 % (35.0-45.0); HEMOGLOBIN 10.6 g/dl (12.0-16.0); LYMPHOCYTES # (AUTO) 1.5 X10'3 (1.1-4.8); LYMPHOCYTES % (AUTO) 17.1 % (21-51); MEAN CORPUSCULAR HEMOGLOBIN 28.8 PG (27.0-31.0); MEAN CORPUSCULAR HGB CONC 34.2 g/dL (33.0-36.5); MEAN CORPUSCULAR VOLUME 84.2 FL (78-98); MONOCYTES % (AUTO) 9.5 % (2-12); NEUTROPHILS % (AUTO) 69.8 % (42-75); RED BLOOD COUNT 3.69 X10'6 (4.20-5.60); WHITE BLOOD COUNT 8.6 X10'3 (4.5-11.0)
[2019-05-06 06:56] LABS: PLATELET COUNT 154 X10'3 (140-440)
[2019-05-06 06:59] LABS: ALANINE AMINOTRANSFERASE 16 U/L (12-78); ALBUMIN 2.9 G/DL (3.4-5.0); ALBUMIN/GLOBULIN RATIO 0.8 (1.1-1.5); ALKALINE PHOSPHATASE 72 IU/L (46-116); ANION GAP 5 (8-16); ASPARTATE AMINO TRANSFERASE 20 U/L (10-37); BILIRUBIN,TOTAL 1.1 MG/DL (0.1-1.0); BLOOD UREA NITROGEN 33 MG/DL (7-18); BUN/CREATININE RATIO 33.7 (6.6-38.0); CALCIUM 8.2 MG/DL (8.5-10.1); CHLORIDE 93 MMOL/L (99-107); CREATININE 0.98 MG/DL (0.40-0.90); GLUCOSE 113 MG/DL (70-104); MAGNESIUM 1.2 MG/DL (1.5-2.4); PHOSPHORUS 3.8 MG/DL (2.3-4.5); SODIUM 130 MMOL/L (135-145); TOTAL CARBON DIOXIDE 32.3 MMOL/L (24-32); TOTAL PROTEIN 6.4 G/DL (6.4-8.2); eGFR 57 ML/MIN
[2019-05-06 07:35] LABS: LARGE PLATELETS FEW; PLATELET ESTIMATE NORMAL
[2019-05-06 07:36] LABS: ANISOCYTOSIS 1+; MICROCYTOSIS 1+
[2019-05-06] MEDS: ipratropium/albuterol 3ml nebule NEB SCH ×2 (07:37→11:26)
[2019-05-06] MEDS: spironolactone 25 MG tablet PO SCH (08:00)
[2019-05-06] MEDS: carVEDilol 12.5mg tablet PO SCH (08:00)
[2019-05-06] MEDS: furosemide 40mg/4ml inj IV SCH (08:00)
[2019-05-06] MEDS ORDERED: lisinopril 10 MG tablet PO SCH (08:00)
[2019-05-06] MEDS: sertraline 50mg tablet PO SCH (08:35)
[2019-05-06] MEDS: CefTRIAXone/D5W-Rocephin 1gm 50 ML IV SCH (08:35)
[2019-05-06] MEDS: pantoprazole 40mg Tablet.DR PO SCH (08:36)
[2019-05-06] MEDS: apixaban 5mg tablet PO SCH (08:36)
[2019-05-06] MEDS: magnesium Cl slow-release 64mg tablet PO PRN (08:36)
[2019-05-06] MEDS: oxyCODONE/APAP 10/325mg tablet PO SCH (08:36)
[2019-05-06] MEDS: K and/or MAG REPLACEMENT MC SCH (08:39)
[2019-05-06 11:00] VITALS: BP 94/46
[2019-05-06] MEDS ORDERED: MAGN400C PO (11:10)
[2019-05-06] MEDS ORDERED: CEFU500T66 PO (11:10)
[2019-05-06] MEDS ORDERED: APIX5TAB3 PO (11:10)
--- NOTE | 2019-05-06 13:30 | NUR ---
Per MD, patient stable for discharge. New prescriptions called into [facility] in [place], pt's pharmacy of choice. Discharge packet completed and provided to patient--all questions answered. IV removed with catheter intact. Tele monitor removed. All belongings sent with patient. Patient escorted from hospital via wheelchair, accompanied by RN and family. Pt driven home via private vehicle.
== END 2019-05-06 13:30 | disposition home or self-care (01) | DRG 291 ==
LOC: ER 14:31 → ED HOLD 18:21 → PCU 3S 19:10
PROVIDERS: ADMIT Family Medicine; ATTEND Family Medicine
PROC: 3E0234Z Introduction of Serum, Toxoid and Vaccine into Muscle, Percutaneous Approach (ICD-10-PCS; principal; 2019-05-05)
DX: I50.23 Acute on chronic systolic (congestive) heart failure (principal); J18.9 Pneumonia, unspecified organism; N17.9 Acute kidney failure, unspecified; E87.1 Hypo-osmolality and hyponatremia; I42.9 Cardiomyopathy, unspecified; I11.0 Hypertensive heart disease with heart failure; E11.9 Type 2 diabetes mellitus without complications; E78.00 Pure hypercholesterolemia, unspecified; E78.5 Hyperlipidemia, unspecified; E83.42 Hypomagnesemia; E87.6 Hypokalemia; G89.29 Other chronic pain; K21.9 Gastro-esophageal reflux disease without esophagitis; K44.9 Diaphragmatic hernia without obstruction or gangrene; M54.9 Dorsalgia, unspecified; R00.0 Tachycardia, unspecified; F17.210 Nicotine dependence, cigarettes, uncomplicated; I25.10 Atherosclerotic heart disease of native coronary artery without angina pectoris; D64.9 Anemia, unspecified; I48.91 Unspecified atrial fibrillation; J43.9 Emphysema, unspecified; M79.7 Fibromyalgia; Z79.4 Long term (current) use of insulin; Z79.51 Long term (current) use of inhaled steroids; Z90.710 Acquired absence of both cervix and uterus; Z90.81 Acquired absence of spleen; Z95.5 Presence of coronary angioplasty implant and graft; Z95.810 Presence of automatic (implantable) cardiac defibrillator; Z23 Encounter for immunization; Z88.8 Allergy status to other drugs, medicaments and biological substances; Z91.048 Other nonmedicinal substance allergy status; Z82.49 Family history of ischemic heart disease and other diseases of the circulatory system; Z71.6 Tobacco abuse counseling; Z79.899 Other long term (current) drug therapy
CPT/HCPCS: 36415; 71045; 80053; 82948; 83036; 83735; 83880; 84100; 84484; 85025; 87081; 90732; 93005; 94640; 94760; 96374; 99285; G0378; J0696; J1650; J1815; J1940; J2405; J3475; J3490

== ENCOUNTER 2019-06-02 11:20 | Inpatient (IN) | payer MEDICARE, OTHER ==
[~2019-06-02] VITALS: Ht 165.1 cm; Wt 89.4 kg
[~2019-06-02 11:20] MED LIST changes: +ALBU18HF2 INH; +APIX5TAB3 PO; +CEFU500T66 PO; -FURO20TA4 PO; +FURO80TA87 PO; +GABA-532 PO; +INSU100V12 SQ; +MAGN400C PO; +METF500T PO; +SERT25TA PO; -SPIR25TA5 PO
[2019-06-02 11:51] LABS: LYMPHOCYTES # (AUTO) 0.3 X10'3 (1.1-4.8); NEUTROPHILS # (AUTO) 9.9 X10'3 (1.8-7.7)
[2019-06-02 11:53] LABS: BASOPHILS % (AUTO) 0 % (0-1); EOSINOPHILS % (AUTO) 0.2 % (0-6); HEMATOCRIT 38.9 % (35.0-45.0); LYMPHOCYTES % (AUTO) 2.5 % (21-51); MEAN CORPUSCULAR HEMOGLOBIN 27.8 PG (27.0-31.0); MEAN CORPUSCULAR HGB CONC 33.5 g/dL (33.0-36.5); MEAN PLATELET VOLUME 11.7 FL (7.4-10.4); MONOCYTES # (AUTO) 1.1 X10'3 (0-0.9); MONOCYTES % (AUTO) 9.7 % (2-12); NEUTROPHILS % (AUTO) 87.6 % (42-75); PLATELET COUNT 145 X10'3 (140-440); RED BLOOD COUNT 4.68 X10'6 (4.20-5.60); RED CELL DISTRIBUTION WIDTH 16.7 % (11.5-14.5); WHITE BLOOD COUNT 11.4 X10'3 (4.5-11.0)
[2019-06-02 12:01] LABS: ALANINE AMINOTRANSFERASE 24 U/L (12-78); ALBUMIN 3.4 G/DL (3.4-5.0); ALBUMIN/GLOBULIN RATIO 0.9 (1.1-1.5); ALKALINE PHOSPHATASE 76 IU/L (46-116); ANION GAP 8 (8-16); ASPARTATE AMINO TRANSFERASE 42 U/L (10-37); BILIRUBIN,TOTAL 2.5 MG/DL (0.1-1.0); BLOOD UREA NITROGEN 38 MG/DL (7-18); BUN/CREATININE RATIO 33.3 (6.6-38.0); CALCIUM 9.4 MG/DL (8.5-10.1); CHLORIDE 89 MMOL/L (99-107); CREATININE 1.14 MG/DL (0.40-0.90); GLUCOSE 157 MG/DL (70-104); LIPASE 141 U/L (73-393); POTASSIUM 4.4 MMOL/L (3.5-5.1); SODIUM 124 MMOL/L (135-145); TOTAL CARBON DIOXIDE 26.8 MMOL/L (24-32); TOTAL PROTEIN 7.2 G/DL (6.4-8.2); eGFR 48 ML/MIN
[2019-06-02 12:15] LABS: ANISOCYTOSIS 1+; HYPOCHROMASIA 1+; LARGE PLATELETS FEW; PLATELET ESTIMATE NORMAL
[2019-06-02 12:16] LABS: ACANTHOCYTES 2+; SCHISTOCYTES FEW; TARGET CELLS FEW
[2019-06-02 12:41] LABS: CLARITY,URINE SLIGHTLY CLOUDY (Clear); COLOR,URINE YELLOW (Yellow); GLUCOSE, URINE NEGATIVE (Neg); KETONES,URINE NEGATIVE (Neg); LEUKOCYTE ESTERASE ,URINE NEGATIVE (Neg); NITRITES, URINE NEGATIVE (Neg); OCCULT BLOOD,URINE NEGATIVE (Neg); PH,URINE 5.5 (4.8-8.0); PROTEIN,URINE TRACE mg/dl (Neg)
[2019-06-02 12:48] LABS: UA COLLECTION TYPE FOLEY CATH
--- NOTE | 2019-06-02 12:50 | NUR ---
Interrogated [employer] Pacer/Defibrillator
--- NOTE | 2019-06-02 12:51 | NUR ---
PACEMAKER INTEGRATED THRU [employer], SUCCESSFUL AND MESSAGE SENT TO [employer]
[2019-06-02 12:54] LABS: HYALINE CASTS 0-3 /LPF (NEGATIVE)
[2019-06-02 12:56] LABS: SQUAMOUS EPITHELIAL CELL,UR MODERATE /LPF (FEW)
[2019-06-02 12:57] LABS: AMORPHOUS URATES 1+
[2019-06-02 12:58] LABS: BACTERIA,URINE FEW /HPF (Neg); RBC,URINE 0-2 /HPF (0-2); RENAL CELLS, URINE FEW /HPF; WBC,URINE 0-4 /HPF (0-4)
[2019-06-02 13:03] LABS: MAGNESIUM 1.3 MG/DL (1.5-2.4)
--- NOTE | 2019-06-02 13:20 | NUR ---
RELIEVING RN FOR BREAK, DR NEVILLE AT BEDSIDE TO REDUCE HERNIA AND TOLD PT SHE HAS BOWEL OBSTRUCTION
[2019-06-02] MEDS ORDERED: fentaNYL/PF 50MCG/1 ML 2ML syringe IV ONE (13:25)
--- NOTE | 2019-06-02 13:32 | NUR ---
Radha with [employer] said "pacemaker looks ok...goes into afib with ventricular response", Dr Vick aware, Dr Vick unable to reduce hernia, Dr Vick to consult with surgeon, report to Og SOTO
[2019-06-02] MEDS ORDERED: AMIO200T61 PO (14:02)
[2019-06-02] MEDS ORDERED: FURO-150 PO (14:02)
[2019-06-02] MEDS ORDERED: magnesium 4gm in 100ml NS 100 ML IV PRN (14:40)
[2019-06-02] MEDS ORDERED: magnesium 2GM in 50ml NS 50 ML IV PRN (14:40)
[2019-06-02] MEDS ORDERED: magnesium Cl slow-release 64mg tablet PO PRN (14:40)
--- NOTE | 2019-06-02 15:08 | NUR ---
received report from CHARLES Foley in ED. all questions/concerns addressed at this time. room 313 prepped for patient
[2019-06-02] MEDS ORDERED: LEVO50TA8 PO (16:12)
[2019-06-02 18:00] VITALS: BP 109/60
--- NOTE | 2019-06-02 18:00 | NUR ---
Patient in room MED 313. I have received report from Yari SOTO and had the opportunity to ask questions and assume patient care.
--- NOTE | 2019-06-02 18:00 | NUR ---
Patient in room MED 313. I have received report from Nancy SOTO and had the opportunity to ask questions and assume patient care.
[2019-06-02] MEDS ORDERED: insulin Lispro (HumaLOG) vial - multi-dose SQ SCH (18:10)
[2019-06-02] MEDS ORDERED: dextrose ORAL solution 15 GM/59 ML bottle PO PRN ×2 (18:10)
[2019-06-02] MEDS ORDERED: MESSAGE TO PHARMACY PO ONE (18:10)
[2019-06-02] MEDS ORDERED: dextrose 50%-water 50ml dispensing syringe IV PRN ×2 (18:10)
[2019-06-02] MEDS ORDERED: glucagon, human recombinant 1mg kit SUBCUT PRN (18:10)
--- NOTE | 2019-06-02 18:58 | NUR ---
Problems reprioritized. Patient report given, questions answered & plan of care reviewed with Annmarie SOTO.
--- NOTE | 2019-06-02 19:56 | NUR ---
jazmine Dickens for pain meds, he spoke with charge nurse and ordered morphine 2mg IV q4 prn
--- NOTE | 2019-06-02 20:06 | NUR ---
PAGER ID: [phone] MESSAGE: [phone] pt RUBIN med rec not completed by MD, patient admitted around 1500 today. Night hospitalist will not complete med rec, pt is on cardiac meds and has no scheduled meds available for tonight. - ACCE [phone]
[2019-06-02] MEDS: morphine 2 MG/ML inj. syringe IV PRN (20:49)
[2019-06-02] MEDS: insulin glargine (Lantus) pen - multi-dose SQ SCH (21:00)
[2019-06-02 22:00] VITALS: BP 104/53
[2019-06-03] VITALS (17 sets, daily range): BP systolic 83–139; BP diastolic 27–77
[2019-06-03 00:44] LABS: EOSINOPHILS % (AUTO) 0.1 % (0-6)
[2019-06-03] MEDS: normal saline 1000ml 1,000 ML IV SCH ×3 (00:50→23:57)
[2019-06-03 00:56] LABS: PLATELET COUNT 155 X10'3 (140-440)
[2019-06-03 00:58] LABS: BASOPHILS % (AUTO) 0.3 % (0-1); HEMATOCRIT 37.1 % (35.0-45.0); HEMOGLOBIN 12.5 g/dl (12.0-16.0); LYMPHOCYTES # (AUTO) 0.4 X10'3 (1.1-4.8); LYMPHOCYTES % (AUTO) 3.2 % (21-51); MEAN CORPUSCULAR HEMOGLOBIN 27.5 PG (27.0-31.0); MEAN CORPUSCULAR HGB CONC 33.7 g/dL (33.0-36.5); MEAN CORPUSCULAR VOLUME 81.7 FL (78-98); MEAN PLATELET VOLUME 11.7 FL (7.4-10.4); MONOCYTES # (AUTO) 0.9 X10'3 (0-0.9); MONOCYTES % (AUTO) 7.9 % (2-12); NEUTROPHILS # (AUTO) 10.2 X10'3 (1.8-7.7); NEUTROPHILS % (AUTO) 88.5 % (42-75); RED BLOOD COUNT 4.54 X10'6 (4.20-5.60); RED CELL DISTRIBUTION WIDTH 16.4 % (11.5-14.5); WHITE BLOOD COUNT 11.5 X10'3 (4.5-11.0)
[2019-06-03 01:00] LABS: ALBUMIN 3.2 G/DL (3.4-5.0); ANION GAP 10 (8-16); BLOOD UREA NITROGEN 37 MG/DL (7-18); BUN/CREATININE RATIO 31.4 (6.6-38.0); CALCIUM 9.2 MG/DL (8.5-10.1); CHLORIDE 89 MMOL/L (99-107); CREATININE 1.18 MG/DL (0.40-0.90); GLUCOSE 134 MG/DL (70-104); SODIUM 126 MMOL/L (135-145); TOTAL CARBON DIOXIDE 26.9 MMOL/L (24-32); eGFR 46 ML/MIN
[2019-06-03] MEDS: morphine 2 MG/ML inj. syringe IV PRN ×3 (01:05→19:47)
--- NOTE | 2019-06-03 02:01 | NUR ---
sent page to erika: PAGER ID: [phone] MESSAGE: [phone] Pt Griffith has reddened rash under pannus and breasts, do you want to order nystatin? [phone] Annmarie SOTO He responded that it needs to be addressed during day shift.
--- NOTE | 2019-06-03 06:00 | NUR ---
Problems reprioritized. Patient report given, questions answered & plan of care reviewed with Marian SOTO.
--- NOTE | 2019-06-03 06:40 | NUR ---
Patient in room MED 313. I have received report from CHARLES Wisdom and had the opportunity to ask questions and assume patient care.
[2019-06-03 07:58] LABS: MAGNESIUM 1.5 MG/DL (1.5-2.4)
[2019-06-03] MEDS ORDERED: FLU VACC QS2019-20 36MOS UP/PF 60 MCG/0.5 ML SYRINGE IMVAC ONE (08:00)
[2019-06-03] MEDS: pantoprazole 40mg Tablet.DR PO SCH ×2 (08:21→19:45)
[2019-06-03] MEDS: carVEDilol 12.5mg tablet PO SCH ×2 (08:22→19:46)
[2019-06-03 09:27] LABS: ALBUMIN 2.8 G/DL (3.4-5.0); ANION GAP 7 (8-16); BLOOD UREA NITROGEN 37 MG/DL (7-18); BUN/CREATININE RATIO 32.2 (6.6-38.0); CHLORIDE 92 MMOL/L (99-107); CREATININE 1.15 MG/DL (0.40-0.90); GLUCOSE 126 MG/DL (70-104); POTASSIUM 4.2 MMOL/L (3.5-5.1); SODIUM 126 MMOL/L (135-145); TOTAL CARBON DIOXIDE 27.2 MMOL/L (24-32); eGFR 47 ML/MIN
[2019-06-03] MEDS ORDERED: levalbuterol 0.63mg/3ml nebule IH ONE (10:55)
--- NOTE | 2019-06-03 11:11 | NUR ---
ASKED BY PRIMARY RN KENDY TO ADMIN MORPHINE. BP 105/65
--- NOTE | 2019-06-03 11:47 | NUR ---
DM Consult: A1C 8.0. Pt NPO to OR for incarcerated hernia repair today. Prior admit pt had increased Metformin rx as well as GLU checks. Will need DM ed once stable prior to d/c. Addendum: 06/03/19 at [address] Amended: Links added.
[2019-06-03] MEDS: nystatin 15 GM powder TP SCH ×2 (13:00→20:45)
[2019-06-03] MEDS ORDERED: BUPIVAcaine/PF 2.5 mg/ml (0.25%) 30ml vial ONE (13:06)
[2019-06-03] MEDS ORDERED: ringers solution, lacted 1,000 ML IV SCH (13:12)
[2019-06-03] MEDS ORDERED: fentaNYL/PF 50MCG/1 ML 2ML syringe IV PRN ×2 (13:15)
[2019-06-03] MEDS ORDERED: morphine 4 MG/ML inj SYRINge IV PRN ×2 (13:15)
[2019-06-03] MEDS ORDERED: ondansetron/PF 4mg/2ml inj IV PRN (13:15)
[2019-06-03] MEDS ORDERED: enalaprilat dihydrate 2.5mg/2ml vial IV PRN (13:15)
[2019-06-03] MEDS ORDERED: hydrALAZINE 20mg/ml inj. IV PRN (13:15)
[2019-06-03] MEDS: ceFAZolin 1000mg inj ONE ×2 (13:29→13:30)
[2019-06-03] MEDS ORDERED: fentaNYL/PF 50MCG/1 ML 2ML syringe ONE (13:38)
[2019-06-03] MEDS ORDERED: midazolam 2 mg/2 ml injection ONE (13:38)
[2019-06-03] MEDS ORDERED: rocuronium 10mg/ml inj IV ONE (13:39)
[2019-06-03] MEDS ORDERED: albumin (Human) 5% 250ml 250 ML IV ONE ×2 (13:40→14:11)
--- NOTE | 2019-06-03 13:45 | NUR ---
Patient transported to OR by surgical nursing staff. No s/s of distress. All questions and concerns addressed with patient.
[2019-06-03] MEDS ORDERED: etomidate 2mg/ml inj. ONE (14:00)
[2019-06-03] MEDS ORDERED: sevoflurane 250ml liquid IH ONE (14:00)
[2019-06-03] MEDS ORDERED: neostigmine methylsulfate 1 MG/ML 10ml vial ONE (14:00)
[2019-06-03] MEDS ORDERED: ondansetron/PF 4mg/2ml inj ONE (14:22)
[2019-06-03] MEDS ORDERED: glycopyrrolate 0.2mg/ml inj ONE (15:53)
--- NOTE | 2019-06-03 16:15 | NUR ---
Received from OR via [facility], accompanied by Anesthesiologist DR. MAGALLANES and report given by Anesthesiolgist. PT ARRIVED AWAKE C/O PAIN TO ABD, MEDICATED BY DR. MAGALLANES WITH SOME RELIEF. JACKSON WITH GOOD CSM. PULSES AND DECORATIVE CUTTING MACHINE TENDER WNL. ABD DRESSING CDI WITH BINDER IN PLACE. FC IN PLACE
--- NOTE | 2019-06-03 16:45 | NUR ---
Report received from WALLPAPER CLEANERFiona
--- NOTE | 2019-06-03 16:55 | NUR ---
Report received from Marian ROCA RN.
--- NOTE | 2019-06-03 17:02 | NUR ---
Problems reprioritized. Patient report given, questions answered & plan of care reviewed with CHARLES Delarosa on surgical.
--- NOTE | 2019-06-03 17:20 | NUR ---
Pt arrived to room 340B from PACU
[2019-06-03] MEDS: ondansetron/PF 4mg/2ml inj IV PRN (17:57)
--- NOTE | 2019-06-03 18:15 | NUR ---
Problems reprioritized. Patient report given, questions answered & plan of care reviewed with CHARLES Lopez.
[2019-06-03] MEDS: insulin glargine (Lantus) pen - multi-dose SQ SCH (21:00)
[2019-06-03] MEDS: ceFOXitin 1 GM/D5W 50mL IVPB 50 ML IV SCH (23:57)
[2019-06-04] VITALS (9 sets, daily range): BP systolic 83–109; BP diastolic 47–65
--- NOTE | 2019-06-04 04:00 | NUR ---
PT ACCIDENTLY DC'D N/G. 350 ML OUTPUT FOR 12 HRS
[2019-06-04 06:10] LABS: ALBUMIN 2.6 G/DL (3.4-5.0); ANION GAP 6 (8-16); BLOOD UREA NITROGEN 35 MG/DL (7-18); BUN/CREATININE RATIO 28.2 (6.6-38.0); CALCIUM 8.2 MG/DL (8.5-10.1); CHLORIDE 95 MMOL/L (99-107); CREATININE 1.24 MG/DL (0.40-0.90); GLUCOSE 110 MG/DL (70-104); POTASSIUM 4.1 MMOL/L (3.5-5.1); SODIUM 128 MMOL/L (135-145); TOTAL CARBON DIOXIDE 27.2 MMOL/L (24-32); eGFR 43 ML/MIN
--- NOTE | 2019-06-04 06:10 | NUR ---
Patient in room ANNE 340. I have received report from CHARLES Lopez and had the opportunity to ask questions and assume patient care.
[2019-06-04 06:11] LABS: BASOPHILS % (AUTO) 0.1 % (0-1); EOSINOPHILS % (AUTO) 0 % (0-6); MEAN CORPUSCULAR HEMOGLOBIN 27.4 PG (27.0-31.0); MONOCYTES # (AUTO) 0.8 X10'3 (0-0.9)
[2019-06-04 06:19] LABS: HEMATOCRIT 33.5 % (35.0-45.0); LYMPHOCYTES # (AUTO) 0.2 X10'3 (1.1-4.8); LYMPHOCYTES % (AUTO) 1.4 % (21-51); MEAN CORPUSCULAR HGB CONC 32.9 g/dL (33.0-36.5); MEAN CORPUSCULAR VOLUME 83.1 FL (78-98); MEAN PLATELET VOLUME 11.5 FL (7.4-10.4); MONOCYTES % (AUTO) 4.6 % (2-12); NEUTROPHILS # (AUTO) 16.3 X10'3 (1.8-7.7); NEUTROPHILS % (AUTO) 93.9 % (42-75); PLATELET COUNT 144 X10'3 (140-440); RED BLOOD COUNT 4.03 X10'6 (4.20-5.60); RED CELL DISTRIBUTION WIDTH 16.5 % (11.5-14.5); WHITE BLOOD COUNT 17.4 X10'3 (4.5-11.0)
--- NOTE | 2019-06-04 06:48 | NUR ---
Problems reprioritized. Patient report given, questions answered & plan of care reviewed with VALENTÍN. Addendum: 06/04/19 at 0648 by Gregory Meza RN Amended: Links added.
[2019-06-04 07:06] LABS: ANISOCYTOSIS 1+; PLATELET ESTIMATE NORMAL
[2019-06-04 07:07] LABS: MICROCYTOSIS 1+
[2019-06-04 07:08] LABS: ACANTHOCYTES FEW
[2019-06-04] MEDS: carVEDilol 12.5mg tablet PO SCH ×2 (08:00→20:00)
[2019-06-04] MEDS: ceFOXitin 1 GM/D5W 50mL IVPB 50 ML IV SCH (08:00)
[2019-06-04] MEDS: pantoprazole 40mg Tablet.DR PO SCH ×2 (08:00→20:00)
[2019-06-04] MEDS: nystatin 15 GM powder TP SCH ×3 (08:01→21:00)
--- NOTE | 2019-06-04 10:40 | NUR ---
Patients primary RN on surgical, Isaura has called and asked for help to place orders from Dr. Aguilar. has ordered the Dobutamine gtt to be started at 3mcg/kg/min. Order has been placed and will be started once the patient arrives on Tele. Will inform commercial correspondent Latricia.
--- NOTE | 2019-06-04 11:20 | NUR ---
Problems reprioritized. Patient report given, questions answered & plan of care reviewed with CHARLES Rome. Pt transferred to room 3012A shortly after report completed.
--- NOTE | 2019-06-04 11:20 | NUR ---
Patient in room PCU 3012. I have received report from Isaura SOTO and had the opportunity to ask questions and assume patient care. Awaiting patient arrival to PCU 3012A.
--- NOTE | 2019-06-04 11:40 | NUR ---
Patient arrived to PCU 3012A on bed. Patient oriented to room and to call light. T: 98.7, RR: 13, 02: 91% on room air, BP 88/54. Pain 7/10. All immediate needs met at this time.
[2019-06-04] MEDS: DOBUTamine-DoBUTrex 500mg/D5W 250 ML IV SCH ×2 (12:10→19:23)
--- NOTE | 2019-06-04 14:43 | NUR ---
New order from Dr. Chapman: IV tylenol 1 gram.
[2019-06-04] MEDS ORDERED: acetaminophen 1,000mg/100ml IV 100 ML IV ONE (14:45)
--- NOTE | 2019-06-04 15:28 | NUR ---
F/u: Pt seen by RD for written/verbal DM ed w/ RD contact information provided. Pt declined verbal ed review at this time. RD encouraged to attend CDE course and to contact RD if further questions/concerns. Addendum: 06/04/19 at [address] Amended: Links added.
[2019-06-04] MEDS: normal saline 1000ml 1,000 ML IV SCH (17:06)
--- NOTE | 2019-06-04 17:30 | NUR ---
Per Dr. Santiago, insert NG tube to low continuous suction. Patient tolerated well.
[2019-06-04] MEDS ORDERED: digoxin 250mcg/ml 2ml ampule IV ONE ×2 (17:45→23:45)
--- NOTE | 2019-06-04 17:59 | NUR ---
New orders from Dr. Aguilar: Potassium 20 meq daily, Lasix 20 mg IV daily, digoxin IV 250 mcg now and digoxin 250 mcg 6 hours later. Increase dobutamine to 5 mcg/kg/min.
--- NOTE | 2019-06-04 18:00 | NUR ---
Reassessment of IV acetaminophen unable to be assessed by NOC shift RN, due to administration of medication during [id number] shift. However, Patient is still complaining of pain during NOC shift.
--- NOTE | 2019-06-04 18:30 | NUR ---
Problems reprioritized. Patient report given, questions answered & plan of care reviewed with CHARLES Sorenson. Patient stable at transfer of care.
--- NOTE | 2019-06-04 18:31 | NUR ---
Patient in room PCU 3012A. I have received report from CHARLES Rome and had the opportunity to ask questions and assume patient care. Patient awake for bedside report and stable at this time.
--- NOTE | 2019-06-04 19:40 | NUR ---
PAGER ID: [phone] MESSAGE: Ext. [phone] CHARLES Sorenson for pt in 3012a admitted for incarcerated incisional hernia on 06/02. Pain unrelieved by IV Tylenol and morphine. Takes Percocet at home. Very painful and crying at the moment. Addendum: 06/04/19 at 1942 by Michael Guerra RN Orders received from Dr. Carter for 1mg IV Dilaudid for severe pain q4h and 0.5mg IV Dailudid for moderate pain q4h
[2019-06-04] MEDS ORDERED: HYDROmorphone inj. 0.5 MG/0.5 ML DISP.SYRIN IV PRN (19:45)
[2019-06-04] MEDS: HYDROmorphone 1 mg/ml syringe IV PRN (20:07)
--- NOTE | 2019-06-04 20:10 | NUR ---
DR SHAFFER NOTIFIED OF PATIENT TO LOW INTERMITTENT SUCTION. ORDERS FOR 40 MG IV PROTONIX OBTAINED. PATIENT ON DOBUTAMINE DRIP AT 5 MMCGS/KG/MIN. WILL HOLD OFF ON COREG PO PER PROVIDER INSTRUCTION.
[2019-06-04] MEDS: pantoprazole 40 MG vial IV SCH (20:16)
[2019-06-04] MEDS: insulin glargine (Lantus) pen - multi-dose SQ SCH (21:00)
[2019-06-05] VITALS (9 sets, daily range): BP systolic 94–135; BP diastolic 42–107
[2019-06-05] MEDS: normal saline 1000ml 1,000 ML IV SCH ×2 (00:35→06:21)
[2019-06-05 02:02] LABS: BASOPHILS # (AUTO) 0.1 X10'3 (0-0.2); BASOPHILS % (AUTO) 0.2 % (0-1); EOSINOPHILS % (AUTO) 0 % (0-6); HEMOGLOBIN 10.3 g/dl (12.0-16.0); LYMPHOCYTES # (AUTO) 0.4 X10'3 (1.1-4.8); LYMPHOCYTES % (AUTO) 1.8 % (21-51); MEAN CORPUSCULAR HEMOGLOBIN 27.1 PG (27.0-31.0); MEAN CORPUSCULAR VOLUME 82.2 FL (78-98); MEAN PLATELET VOLUME 10.8 FL (7.4-10.4); MONOCYTES # (AUTO) 1.7 X10'3 (0-0.9); NEUTROPHILS # (AUTO) 19.2 X10'3 (1.8-7.7); PLATELET COUNT 127 X10'3 (140-440); RED BLOOD COUNT 3.78 X10'6 (4.20-5.60); RED CELL DISTRIBUTION WIDTH 16.7 % (11.5-14.5); WHITE BLOOD COUNT 21.4 X10'3 (4.5-11.0)
[2019-06-05] MEDS: HYDROmorphone 1 mg/ml syringe IV PRN ×5 (02:06→23:05)
[2019-06-05 02:09] LABS: ALBUMIN 2.2 G/DL (3.4-5.0); ANION GAP 6 (8-16); BLOOD UREA NITROGEN 35 MG/DL (7-18); BUN/CREATININE RATIO 29.4 (6.6-38.0); CALCIUM 8.2 MG/DL (8.5-10.1); CHLORIDE 97 MMOL/L (99-107); CREATININE 1.19 MG/DL (0.40-0.90); GLUCOSE 104 MG/DL (70-104); POTASSIUM 4.4 MMOL/L (3.5-5.1); SODIUM 130 MMOL/L (135-145); TOTAL CARBON DIOXIDE 27.4 MMOL/L (24-32); eGFR 45 ML/MIN
--- NOTE | 2019-06-05 06:42 | NUR ---
Problems reprioritized. Patient report given, questions answered & plan of care reviewed with CHARLES Bustamante and CHARLES Stephens.
--- NOTE | 2019-06-05 06:55 | NUR ---
Patient in room PCU 3012. I have received report from Delta SOTO and had the opportunity to ask questions and assume patient care. Will continue to monitor patient.
[2019-06-05] MEDS: pantoprazole 40 MG vial IV SCH ×2 (07:29→20:00)
[2019-06-05] MEDS: nystatin 15 GM powder TP SCH ×3 (07:30→21:15)
[2019-06-05] MEDS: pantoprazole 40mg Tablet.DR PO SCH ×2 (08:00→20:00)
[2019-06-05] MEDS: carVEDilol 12.5mg tablet PO SCH ×2 (08:00→20:00)
[2019-06-05] MEDS ORDERED: furosemide 20 MG/2 ML vial IV SCH (08:00)
[2019-06-05] MEDS: potassium Cl 20 mEq SR tablet PO SCH (08:00)
--- NOTE | 2019-06-05 18:24 | NUR ---
Problems reprioritized. Patient report given, questions answered & plan of care reviewed with Delta SOTO. Patient stable at transfer of care.
--- NOTE | 2019-06-05 18:52 | NUR ---
Patient in room PCU 3012A. I have received report from CHARLES Bustamante and had the opportunity to ask questions and assume patient care. Patient on 5 mcg/kg/min Dobutamine per provider order with 80 mL/hr NS. Dr. Aguilar at bedside. Orders received for 400cc FR, currently NPO, Lasix 20mg BID starting now. Per Dr. Aguilar, patient needs to have value for C/O to qualify through insurance to be discharged to home on Dobutamine. Possible transfer to ICU tonight or tomorrow. Dr. Presley also needs to be consulted for diet order. Will attempt to contact shortly.
[2019-06-05] MEDS: furosemide 20 MG/2 ML vial IV SCH (20:00)
[2019-06-05] MEDS: insulin glargine (Lantus) pen - multi-dose SQ SCH (21:00)
[2019-06-06] VITALS (19 sets, daily range): BP systolic 95–148; BP diastolic 47–83
[2019-06-06] MEDS: normal saline 1000ml 1,000 ML IV SCH ×2 (01:35→14:05)
[2019-06-06] MEDS: DOBUTamine-DoBUTrex 500mg/D5W 250 ML IV SCH ×2 (02:37→04:40)
[2019-06-06] MEDS: HYDROmorphone 1 mg/ml syringe IV PRN ×4 (04:39→23:29)
[2019-06-06 05:56] LABS: ALBUMIN 2.2 G/DL (3.4-5.0); ANION GAP 8 (8-16); BLOOD UREA NITROGEN 31 MG/DL (7-18); CALCIUM 8.2 MG/DL (8.5-10.1); CHLORIDE 99 MMOL/L (99-107); CREATININE 0.97 MG/DL (0.40-0.90); GLUCOSE 69 MG/DL (70-104); POTASSIUM 4.1 MMOL/L (3.5-5.1); SODIUM 133 MMOL/L (135-145); eGFR 57 ML/MIN
--- NOTE | 2019-06-06 06:30 | NUR ---
Patient in room PCU 3012. I have received report from CHARLES Sorenson and had the opportunity to ask questions and assume patient care.
--- NOTE | 2019-06-06 06:49 | NUR ---
Problems reprioritized. Patient report given, questions answered & plan of care reviewed with CHARLES Hurtado.
[2019-06-06 07:45] LABS: BASOPHILS % (AUTO) 0.2 % (0-1); EOSINOPHILS # (AUTO) 0.1 X10'3 (0-0.9); EOSINOPHILS % (AUTO) 0.7 % (0-6); HEMATOCRIT 31.4 % (35.0-45.0); HEMOGLOBIN 10.3 g/dl (12.0-16.0); LYMPHOCYTES # (AUTO) 0.5 X10'3 (1.1-4.8); LYMPHOCYTES % (AUTO) 2.7 % (21-51); MEAN CORPUSCULAR HEMOGLOBIN 27.4 PG (27.0-31.0); MEAN CORPUSCULAR VOLUME 83.1 FL (78-98); MEAN PLATELET VOLUME 11.5 FL (7.4-10.4); MONOCYTES % (AUTO) 11.4 % (2-12); NEUTROPHILS # (AUTO) 14.8 X10'3 (1.8-7.7); PLATELET COUNT 121 X10'3 (140-440); RED BLOOD COUNT 3.78 X10'6 (4.20-5.60); RED CELL DISTRIBUTION WIDTH 16.9 % (11.5-14.5); WHITE BLOOD COUNT 17.4 X10'3 (4.5-11.0)
[2019-06-06] MEDS: nystatin 15 GM powder TP SCH ×3 (08:33→21:10)
[2019-06-06] MEDS: furosemide 20 MG/2 ML vial IV SCH ×2 (08:33→20:00)
[2019-06-06] MEDS: pantoprazole 40mg Tablet.DR PO SCH ×2 (08:33→20:32)
[2019-06-06] MEDS: carVEDilol 12.5mg tablet PO SCH ×2 (08:33→20:32)
[2019-06-06] MEDS: potassium Cl 20 mEq SR tablet PO SCH (08:34)
[2019-06-06 09:02] LABS: PLATELET ESTIMATE DECREASED
[2019-06-06 09:03] LABS: ANISOCYTOSIS 1+; LARGE PLATELETS FEW; POIKILOCYTOSIS 2+
[2019-06-06 09:05] LABS: ACANTHOCYTES 3+
[2019-06-06 09:06] LABS: SCHISTOCYTES 2+
[2019-06-06] MEDS: apixaban 5mg tablet PO SCH ×2 (09:20→20:31)
--- NOTE | 2019-06-06 12:27 | NUR ---
Initial: Pt admit with incarcerated hernia s/p repair with mesh 06/03 and doing well post-op per MD notes. Diet has just been advanced to Na restrict with 400 mL fluid restriction from NPO, pending documentation of first meal. Pt documented with reported hx of esophageal stricture. During past admits pt reported to RD difficulty swallowing at times however with no food in in particular contributing to difficulty swallowing; RD consulted for BSS. has ordered a full liquid diet for pt d/t difficulty swallowing solids. D/w RN that dietary is unable to send any liquids on patient trays if a pt is on a fluid restriction, RN to d/w MD recommendation to d/c fluid restriction. [facility] 06/01, d/w RN who states she will discuss bowel care with MD. Will continue to follow. Recommendations: 1) Continue full liquid diet per recs IF able to d/c fluid restriction 2) Diet advancement to CHO controlled/Na restrict with texture modification per ST as medically indicated 3) Routine bowel care 4) Wt per rx Addendum: 06/06/19 at [address] Amended: Links added.
--- NOTE | 2019-06-06 14:00 | NUR ---
KG on Dr Stringer cell phone. Re: to continue 400 cc Fluid restriction, and restarting Eliquis. Patrice Phillips wants to clear restarting Eliquis with him.
--- NOTE | 2019-06-06 14:02 | NUR ---
Pt to transfer to CICU to prove ongoing Dobutamin gtt gave report to Art, RN
--- NOTE | 2019-06-06 14:26 | NUR ---
Attempt to call Dr Stringer r: Pantoprozol PO and IV orders. Clarify
--- NOTE | 2019-06-06 14:54 | NUR ---
Pt arrived from PCU. Pt placed on monitor and oriented to room. Pt prepped for placement of central line.
--- NOTE | 2019-06-06 15:34 | NUR ---
Pt was taken to CICU rm 2006 via elizabeth. Received by CICU staff
[2019-06-06] MEDS ORDERED: LIDOcaine 1% (10mg/ml) 2ml vial SQ STA (15:55)
--- NOTE | 2019-06-06 18:33 | NUR ---
assumed care from art rn/sugey gerard no questions or concerns after assuming care
--- NOTE | 2019-06-06 18:39 | NUR ---
DR. BRUCE AT BEDSIDE VERBALIZED TO ME TO TITRATE DOBUTAMINE DOWN AND IF B/P TOLERATES TO GET CARDIAC OUT OUT/INDEX BASELINE WITH OUT DOBUTAMINE INFUSING
--- NOTE | 2019-06-06 19:45 | NUR ---
DR. BRUCE WANTED ME TO HOLD LASIX WHILE I TITRATE PATIENTS DOBUTAMINE
[2019-06-06] MEDS: insulin glargine (Lantus) pen - multi-dose SQ SCH (21:00)
--- NOTE | 2019-06-06 22:53 | NUR ---
PATIENT IN BED EYES CLOSED RR EVEN UN LABORED NO OBSERVABLE S/S OF ACUTE STRESS AT THIS TIME WILL CONTINUE TO MONITOR
[2019-06-07] VITALS (25 sets, daily range): BP systolic 109–145; BP diastolic 48–89
--- NOTE | 2019-06-07 01:21 | NUR ---
PATIENT IN BED EYES CLOSED RR EVEN UN LABORED NO OBSERVABLE S/S OF ACUTE STRESS AT THIS TIME WILL CONTINUE TO MONITOR
[2019-06-07 03:31] LABS: ALANINE AMINOTRANSFERASE 11 U/L (12-78); ALBUMIN 2.1 G/DL (3.4-5.0); ALBUMIN/GLOBULIN RATIO 0.7 (1.1-1.5); ALKALINE PHOSPHATASE 40 IU/L (46-116); ANION GAP 5 (8-16); ASPARTATE AMINO TRANSFERASE 12 U/L (10-37); BILIRUBIN,TOTAL 2.6 MG/DL (0.1-1.0); BLOOD UREA NITROGEN 29 MG/DL (7-18); BUN/CREATININE RATIO 33.7 (6.6-38.0); CALCIUM 7.8 MG/DL (8.5-10.1); CHLORIDE 99 MMOL/L (99-107); CREATININE 0.86 MG/DL (0.40-0.90); GLUCOSE 124 MG/DL (70-104); POTASSIUM 3.6 MMOL/L (3.5-5.1); SODIUM 132 MMOL/L (135-145); TOTAL CARBON DIOXIDE 27.8 MMOL/L (24-32); TOTAL PROTEIN 5.1 G/DL (6.4-8.2); eGFR 66 ML/MIN
[2019-06-07 03:33] LABS: BASOPHILS % (AUTO) 0.3 % (0-1); EOSINOPHILS # (AUTO) 0.3 X10'3 (0-0.9); EOSINOPHILS % (AUTO) 2.3 % (0-6); HEMATOCRIT 30.2 % (35.0-45.0); LYMPHOCYTES # (AUTO) 0.6 X10'3 (1.1-4.8); LYMPHOCYTES % (AUTO) 4.3 % (21-51); MEAN CORPUSCULAR HEMOGLOBIN 27.3 PG (27.0-31.0); MEAN CORPUSCULAR VOLUME 82.7 FL (78-98); MEAN PLATELET VOLUME 11.3 FL (7.4-10.4); MONOCYTES # (AUTO) 1.5 X10'3 (0-0.9); NEUTROPHILS # (AUTO) 11.3 X10'3 (1.8-7.7); NEUTROPHILS % (AUTO) 82.1 % (42-75); PLATELET COUNT 117 X10'3 (140-440); RED BLOOD COUNT 3.65 X10'6 (4.20-5.60); RED CELL DISTRIBUTION WIDTH 16.6 % (11.5-14.5); WHITE BLOOD COUNT 13.8 X10'3 (4.5-11.0)
--- NOTE | 2019-06-07 04:01 | NUR ---
patient repositioned in bed rr even un labored no observable s/s of acute stress at this time patient states " i can feel my stomach but pain is controlled."
[2019-06-07 04:18] LABS: HYPOCHROMASIA 1+; PLATELET ESTIMATE DECREASED
[2019-06-07 04:19] LABS: ACANTHOCYTES 3+; ANISOCYTOSIS 1+; SCHISTOCYTES 1+
--- NOTE | 2019-06-07 04:28 | NUR ---
patient aw3ake asking to get extremities re adjusted and for the light to be turned on, patient is currently in bed watching television, patients rr even un labored no observable s/s of acute stress at this time will continue to monitor
--- NOTE | 2019-06-07 04:56 | NUR ---
patient up to bedside commode
--- NOTE | 2019-06-07 06:22 | NUR ---
SBAR TO LALIT SOTO NO QUESTIONS OR CONCERNS AFTER ASSUMING CARE
--- NOTE | 2019-06-07 06:30 | NUR ---
received report from davin SOTO
[2019-06-07] MEDS ORDERED: furosemide 40mg/4ml inj IV SCH (08:00)
[2019-06-07] MEDS: potassium Cl 20 mEq SR tablet PO SCH (08:17)
[2019-06-07] MEDS: apixaban 5mg tablet PO SCH ×2 (08:17→19:49)
[2019-06-07] MEDS: pantoprazole 40mg Tablet.DR PO SCH ×2 (08:17→19:49)
[2019-06-07] MEDS: HYDROmorphone 1 mg/ml syringe IV PRN ×3 (08:18→20:58)
[2019-06-07] MEDS: carVEDilol 12.5mg tablet PO SCH ×2 (08:18→19:49)
[2019-06-07] MEDS: normal saline 1000ml 1,000 ML IV SCH ×2 (08:19→15:31)
[2019-06-07] MEDS ORDERED: DOBUTamine-DoBUTrex 500mg/D5W 250 ML IV SCH (09:49)
[2019-06-07] MEDS: K, MAG and/or Phos replacement - Verify level? MC SCH (12:00)
--- NOTE | 2019-06-07 12:20 | NUR ---
Patient in room CICU 2006. I have received report from previous RN and had the opportunity to ask questions and assume patient care.
--- NOTE | 2019-06-07 12:21 | NUR ---
Problems reprioritized. Patient report given, questions answered & plan of care reviewed with toribio gerard.
[2019-06-07] MEDS ORDERED: sodium phosphate inj. 15 MMOL in dextrose 5%-water 150 ML IV PRN (12:35)
[2019-06-07] MEDS ORDERED: potassium Cl 20 mEq SR tablet PO PRN (12:35)
[2019-06-07] MEDS ORDERED: sodium phosphate inj. 30 MMOL in dextrose 5%-water 250 ML IV PRN (12:35)
[2019-06-07] MEDS: nystatin 15 GM powder TP SCH ×3 (13:00→21:03)
[2019-06-07 13:41] LABS: ALBUMIN 2.1 G/DL (3.4-5.0); ANION GAP 3 (8-16); BLOOD UREA NITROGEN 28 MG/DL (7-18); BUN/CREATININE RATIO 33.7 (6.6-38.0); CALCIUM 7.8 MG/DL (8.5-10.1); CHLORIDE 100 MMOL/L (99-107); CREATININE 0.83 MG/DL (0.40-0.90); GLUCOSE 138 MG/DL (70-104); PHOSPHORUS 2.6 MG/DL (2.3-4.5); POTASSIUM 3.6 MMOL/L (3.5-5.1); SODIUM 132 MMOL/L (135-145); TOTAL CARBON DIOXIDE 28.8 MMOL/L (24-32); eGFR 68 ML/MIN
[2019-06-07] MEDS: magnesium 4gm in 100ml NS 100 ML IV PRN (15:14)
[2019-06-07] MEDS: furosemide inj 100 ML IV SCH (15:28)
[2019-06-07] MEDS: DOBUTamine-DoBUTrex 500mg/D5W 250 ML IV SCH (16:23)
[2019-06-07] MEDS: magnesium 2GM in 50ml NS 50 ML IV PRN (17:04)
--- NOTE | 2019-06-07 18:03 | NUR ---
Problems reprioritized. Patient report given, questions answered & plan of care reviewed with oncoming shift.
--- NOTE | 2019-06-07 18:37 | NUR ---
assumed care from emily gerard no questions or concerns after assuming care
[2019-06-07 19:29] LABS: ALBUMIN 2.2 G/DL (3.4-5.0); ANION GAP 4 (8-16); BLOOD UREA NITROGEN 27 MG/DL (7-18); BUN/CREATININE RATIO 32.5 (6.6-38.0); CALCIUM 7.8 MG/DL (8.5-10.1); CHLORIDE 100 MMOL/L (99-107); CREATININE 0.83 MG/DL (0.40-0.90); GLUCOSE 151 MG/DL (70-104); MAGNESIUM 2.3 MG/DL (1.5-2.4); PHOSPHORUS 2.5 MG/DL (2.3-4.5); POTASSIUM 3.7 MMOL/L (3.5-5.1); SODIUM 133 MMOL/L (135-145); TOTAL CARBON DIOXIDE 29.3 MMOL/L (24-32); eGFR 68 ML/MIN
--- NOTE | 2019-06-07 20:30 | NUR ---
PATIENT CURRENTLY WATCHING TELEVISION, RR EVEN UN LABORED NO OBSERVABLE S/S OF ACUTE STRESS AT THIS TIME
[2019-06-07] MEDS: insulin glargine (Lantus) pen - multi-dose SQ SCH (20:57)
--- NOTE | 2019-06-07 22:52 | NUR ---
PATIENT IN BED EYES CLOSED RR EVEN UN LABORED NO OBSERVABLE S/S OF ACUTE STRESS AT THIS TIME
[2019-06-08] VITALS (22 sets, daily range): BP systolic 88–139; BP diastolic 42–66
[2019-06-08 01:46] LABS: ALANINE AMINOTRANSFERASE 12 U/L (12-78); ALBUMIN 2.1 G/DL (3.4-5.0); ALBUMIN/GLOBULIN RATIO 0.7 (1.1-1.5); ALKALINE PHOSPHATASE 43 IU/L (46-116); ANION GAP 4 (8-16); ASPARTATE AMINO TRANSFERASE 13 U/L (10-37); BILIRUBIN,TOTAL 2.5 MG/DL (0.1-1.0); BLOOD UREA NITROGEN 25 MG/DL (7-18); BUN/CREATININE RATIO 32.5 (6.6-38.0); CALCIUM 7.7 MG/DL (8.5-10.1); CHLORIDE 101 MMOL/L (99-107); CREATININE 0.77 MG/DL (0.40-0.90); GLUCOSE 134 MG/DL (70-104); MAGNESIUM 1.7 MG/DL (1.5-2.4); PHOSPHORUS 2.6 MG/DL (2.3-4.5); POTASSIUM 3.3 MMOL/L (3.5-5.1); SODIUM 134 MMOL/L (135-145); TOTAL CARBON DIOXIDE 28.7 MMOL/L (24-32); eGFR 75 ML/MIN
[2019-06-08] MEDS: potassium Cl 20 mEq SR tablet PO PRN (02:13)
[2019-06-08] MEDS: HYDROmorphone 1 mg/ml syringe IV PRN ×2 (02:53→09:53)
[2019-06-08] MEDS: ondansetron/PF 4mg/2ml inj IV PRN (02:53)
--- NOTE | 2019-06-08 03:11 | NUR ---
PATIENT WAS COMPLAINING OF CHRONIC JOINT PAIN AND GENERALIZED SOFT TISSUE PAIN, PATIENT WAS MEDICATED AND IS IN BED EYES CLOSED RR EVEN UN LABORED NO OBSERVABLE S/S OF ACUTE STRESS AT THIS TIME WILL CONTINUE TO MONITOR
[2019-06-08 03:26] LABS: MEAN CORPUSCULAR VOLUME 82.7 FL (78-98)
[2019-06-08 03:28] LABS: HEMATOCRIT 30.9 % (35.0-45.0); HEMOGLOBIN 10.3 g/dl (12.0-16.0); MEAN CORPUSCULAR HEMOGLOBIN 27.6 PG (27.0-31.0); MEAN CORPUSCULAR HGB CONC 33.4 g/dL (33.0-36.5); PLATELET COUNT 113 X10'3 (140-440); RED BLOOD COUNT 3.74 X10'6 (4.20-5.60); RED CELL DISTRIBUTION WIDTH 16.6 % (11.5-14.5); WHITE BLOOD COUNT 11.1 X10'3 (4.5-11.0)
[2019-06-08 03:46] LABS: NEUTROPHILS % (MANUAL) 88 % (42-75); TOTAL CELLS COUNTED 100
[2019-06-08 03:47] LABS: ANISOCYTOSIS 1+; EOSINOPHILS % (MANUAL) 2 % (0-6); HYPOCHROMASIA 1+; LYMPHOCYTES % (MANUAL) 6 % (21-51); MONOCYTES % (MANUAL) 4 % (2-12); PLATELET ESTIMATE DECREASED
[2019-06-08 03:48] LABS: ACANTHOCYTES 3+
--- NOTE | 2019-06-08 04:20 | NUR ---
patient in bed appears to be at rest, covers on eyes closed rr even un labored no observable s/s of acute stress at this time
--- NOTE | 2019-06-08 06:12 | NUR ---
SBAR TO HAYLEY SOTO,NO QUESTIONS OR CONCERNS AFTER ASSUMING CARE
--- NOTE | 2019-06-08 06:15 | NUR ---
Patient in room CICU 2006. I have received report from restaurant shift leader and had the opportunity to ask questions and assume patient care.
[2019-06-08 07:54] LABS: ALBUMIN 2.1 G/DL (3.4-5.0); ANION GAP 3 (8-16); BLOOD UREA NITROGEN 24 MG/DL (7-18); BUN/CREATININE RATIO 31.2 (6.6-38.0); CALCIUM 7.7 MG/DL (8.5-10.1); CHLORIDE 102 MMOL/L (99-107); CREATININE 0.77 MG/DL (0.40-0.90); GLUCOSE 135 MG/DL (70-104); MAGNESIUM 1.5 MG/DL (1.5-2.4); PHOSPHORUS 2.7 MG/DL (2.3-4.5); POTASSIUM 3.2 MMOL/L (3.5-5.1); SODIUM 136 MMOL/L (135-145); TOTAL CARBON DIOXIDE 30.6 MMOL/L (24-32); eGFR 75 ML/MIN
[2019-06-08] MEDS: potassium Cl 20 mEq SR tablet PO SCH ×2 (08:43→13:17)
[2019-06-08] MEDS: carVEDilol 12.5mg tablet PO SCH ×2 (08:43→20:00)
[2019-06-08] MEDS: nystatin 15 GM powder TP SCH ×3 (08:43→20:50)
[2019-06-08] MEDS: pantoprazole 40mg Tablet.DR PO SCH ×2 (08:43→20:50)
[2019-06-08] MEDS: apixaban 5mg tablet PO SCH ×2 (08:43→20:49)
[2019-06-08] MEDS: K, MAG and/or Phos replacement - Verify level? MC SCH (08:46)
[2019-06-08] MEDS ORDERED: TIZA4CAP PO (11:14)
--- NOTE | 2019-06-08 11:48 | NUR ---
Reassessment: Patient's diet has been advanced to regular. Pt s/p f/u BSS today with ST recs full liquid or pureed diet with thin liquids d/t difficulty with regular foods. Per student liaison officer at critical care rounds pt would best benefit from pureed heart healthy diet, d/w RN and dietary. Pt seen at bedside with SO present to obtain food preferences and discuss diet order. Pt reports her ability to swallow solids fluctuates frequently, even within the same day. Food preferences have been d/w dietary, see below. Pt provided with RD contact information. [facility] 06/01, currently not receiving any bowel care. D/w dietary to send prune juice with lunch today. Will continue to follow closely. Recommendations: 1) Continue pureed heart healthy diet with thin liquids per ST/MD/RD 2) Monitor BG levels and need for the addition of CHO controlled diet 3) Light regular yogurt BIDBD; Perry smoothie QD at lunch; Creamy soup BIDLD 4) Routine bowel care 5) Wt per rx Addendum: 06/08/19 at [address] Amended: Links added.
[2019-06-08] MEDS: oxyCODONE/APAP 10/325mg tablet PO PRN (13:19)
[2019-06-08] MEDS: tizanidine 4mg tablet PO PRN (14:05)
[2019-06-08 14:26] LABS: ANION GAP 4 (8-16); BLOOD UREA NITROGEN 22 MG/DL (7-18); BUN/CREATININE RATIO 28.9 (6.6-38.0); CHLORIDE 102 MMOL/L (99-107); CREATININE 0.76 MG/DL (0.40-0.90); GLUCOSE 143 MG/DL (70-104); MAGNESIUM 1.4 MG/DL (1.5-2.4); PHOSPHORUS 2.8 MG/DL (2.3-4.5); POTASSIUM 3.8 MMOL/L (3.5-5.1); SODIUM 137 MMOL/L (135-145); TOTAL CARBON DIOXIDE 30.7 MMOL/L (24-32); eGFR 76 ML/MIN
[2019-06-08] MEDS: normal saline 1000ml 1,000 ML IV SCH (16:50)
[2019-06-08] MEDS: DOBUTamine-DoBUTrex 500mg/D5W 250 ML IV SCH (16:50)
[2019-06-08] MEDS ORDERED: albuterol 2.5 MG/3 ML nebule NEB PRN (16:55)
--- NOTE | 2019-06-08 18:07 | NUR ---
Problems reprioritized. Patient report given, questions answered & plan of care reviewed with oncoming shift.
--- NOTE | 2019-06-08 18:07 | NUR ---
Patient in room CICU 2006. I have received report from offgoing RN and had the opportunity to ask questions and assume patient care.
[2019-06-08 19:49] LABS: ANION GAP 2 (8-16); CHLORIDE 101 MMOL/L (99-107); POTASSIUM 3.7 MMOL/L (3.5-5.1); SODIUM 134 MMOL/L (135-145); TOTAL CARBON DIOXIDE 31.1 MMOL/L (24-32)
[2019-06-08 20:01] LABS: ALBUMIN 1.7 G/DL (3.4-5.0); BLOOD UREA NITROGEN 21 MG/DL (7-18); BUN/CREATININE RATIO 28.4 (6.6-38.0); CALCIUM 6.8 MG/DL (8.5-10.1); CREATININE 0.74 MG/DL (0.40-0.90); GLUCOSE 296 MG/DL (70-104); MAGNESIUM 1.2 MG/DL (1.5-2.4); PHOSPHORUS 2.1 MG/DL (2.3-4.5); eGFR 78 ML/MIN
[2019-06-08] MEDS: albuterol 2.5 MG/3 ML nebule NEB SCH (20:31)
[2019-06-08] MEDS: budesonide 0.5mg/2ml UD nebule IH SCH (20:31)
[2019-06-08] MEDS: gabapentin 300mg capsule PO SCH (20:49)
[2019-06-08] MEDS: magnesium Cl slow-release 64mg tablet PO PRN (20:49)
[2019-06-08] MEDS: Neutra Phos packet PO PRN (20:49)
[2019-06-08] MEDS: pramipexole 0.25mg tablet PO SCH (20:50)
[2019-06-08] MEDS: insulin glargine (Lantus) pen - multi-dose SQ SCH (21:00)
[2019-06-08] MEDS: pravastatin 40mg tablet PO SCH (21:00)
[2019-06-09] VITALS (23 sets, daily range): BP systolic 92–107; BP diastolic 35–58
[2019-06-09 01:46] LABS: ALANINE AMINOTRANSFERASE 10 U/L (12-78); ALBUMIN 1.7 G/DL (3.4-5.0); ALBUMIN/GLOBULIN RATIO 0.6 (1.1-1.5); ALKALINE PHOSPHATASE 42 IU/L (46-116); ANION GAP 4 (8-16); ASPARTATE AMINO TRANSFERASE 10 U/L (10-37); BILIRUBIN,TOTAL 2.3 MG/DL (0.1-1.0); BLOOD UREA NITROGEN 21 MG/DL (7-18); BUN/CREATININE RATIO 30.4 (6.6-38.0); CALCIUM 7.2 MG/DL (8.5-10.1); CHLORIDE 101 MMOL/L (99-107); CREATININE 0.69 MG/DL (0.40-0.90); GLUCOSE 220 MG/DL (70-104); MAGNESIUM 1.1 MG/DL (1.5-2.4); PHOSPHORUS 2.3 MG/DL (2.3-4.5); POTASSIUM 3.5 MMOL/L (3.5-5.1); SODIUM 135 MMOL/L (135-145); TOTAL CARBON DIOXIDE 29.7 MMOL/L (24-32); TOTAL PROTEIN 4.5 G/DL (6.4-8.2); eGFR 85 ML/MIN
[2019-06-09] MEDS: oxyCODONE/APAP 10/325mg tablet PO PRN ×3 (02:06→23:03)
[2019-06-09] MEDS: albuterol 2.5 MG/3 ML nebule NEB SCH ×4 (02:53→20:31)
[2019-06-09 05:31] LABS: BASOPHILS # (AUTO) 0.1 X10'3 (0-0.2); BASOPHILS % (AUTO) 0.7 % (0-1); EOSINOPHILS # (AUTO) 0.3 X10'3 (0-0.9); EOSINOPHILS % (AUTO) 3.6 % (0-6); HEMATOCRIT 25.8 % (35.0-45.0); HEMOGLOBIN 8.7 g/dl (12.0-16.0); LYMPHOCYTES # (AUTO) 0.5 X10'3 (1.1-4.8); LYMPHOCYTES % (AUTO) 5.7 % (21-51); MEAN CORPUSCULAR HEMOGLOBIN 27.7 PG (27.0-31.0); MEAN CORPUSCULAR HGB CONC 33.7 g/dL (33.0-36.5); MEAN CORPUSCULAR VOLUME 82.4 FL (78-98); MEAN PLATELET VOLUME 10.9 FL (7.4-10.4); MONOCYTES # (AUTO) 2.2 X10'3 (0-0.9); MONOCYTES % (AUTO) 23.5 % (2-12); NEUTROPHILS # (AUTO) 6.2 X10'3 (1.8-7.7); NEUTROPHILS % (AUTO) 66.5 % (42-75); PLATELET COUNT 99 X10'3 (140-440); RED BLOOD COUNT 3.13 X10'6 (4.20-5.60); RED CELL DISTRIBUTION WIDTH 16.7 % (11.5-14.5); WHITE BLOOD COUNT 9.3 X10'3 (4.5-11.0)
[2019-06-09 06:13] LABS: ANISOCYTOSIS 1+; PLATELET ESTIMATE DECREASED; TOTAL CELLS COUNTED 100
[2019-06-09 06:14] LABS: ACANTHOCYTES 3+; HYPOCHROMASIA 1+; TARGET CELLS FEW
--- NOTE | 2019-06-09 07:07 | NUR ---
Problems reprioritized. Patient report given, questions answered & plan of care reviewed with Batool SOTO.
[2019-06-09 07:37] LABS: HEMOGLOBIN 9.6 g/dl (12.0-16.0); MEAN CORPUSCULAR HEMOGLOBIN 27.4 PG (27.0-31.0); MEAN CORPUSCULAR HGB CONC 33.6 g/dL (33.0-36.5)
[2019-06-09 07:38] LABS: HEMATOCRIT 28.5 % (35.0-45.0); MEAN CORPUSCULAR VOLUME 81.7 FL (78-98); MEAN PLATELET VOLUME 10.3 FL (7.4-10.4); PLATELET COUNT 107 X10'3 (140-440); RED BLOOD COUNT 3.49 X10'6 (4.20-5.60); RED CELL DISTRIBUTION WIDTH 16.6 % (11.5-14.5); WHITE BLOOD COUNT 9.9 X10'3 (4.5-11.0)
[2019-06-09 07:46] LABS: ALBUMIN 1.9 G/DL (3.4-5.0); ANION GAP 1 (8-16); BLOOD UREA NITROGEN 21 MG/DL (7-18); BUN/CREATININE RATIO 29.2 (6.6-38.0); CALCIUM 7.6 MG/DL (8.5-10.1); CHLORIDE 102 MMOL/L (99-107); CREATININE 0.72 MG/DL (0.40-0.90); GLUCOSE 121 MG/DL (70-104); MAGNESIUM 1.1 MG/DL (1.5-2.4); PHOSPHORUS 2.5 MG/DL (2.3-4.5); POTASSIUM 3.6 MMOL/L (3.5-5.1); SODIUM 136 MMOL/L (135-145); TOTAL CARBON DIOXIDE 33.2 MMOL/L (24-32); eGFR 81 ML/MIN
[2019-06-09 08:01] LABS: ANISOCYTOSIS 1+; PLATELET ESTIMATE DECREASED; TOTAL CELLS COUNTED 100
[2019-06-09 08:03] LABS: ACANTHOCYTES 3+; HYPOCHROMASIA 1+; SCHISTOCYTES 1+; TOXIC VACUOLATION 1+
[2019-06-09 08:04] LABS: TARGET CELLS FEW
[2019-06-09] MEDS: K, MAG and/or Phos replacement - Verify level? MC SCH (08:10)
[2019-06-09] MEDS: amiodarone 200mg tablet PO SCH (08:16)
[2019-06-09] MEDS: apixaban 5mg tablet PO SCH ×2 (08:16→20:50)
[2019-06-09] MEDS: pantoprazole 40mg Tablet.DR PO SCH ×2 (08:16→20:50)
[2019-06-09] MEDS: levoTHYROXINE 25mcg tablet PO SCH (08:16)
[2019-06-09] MEDS: carVEDilol 12.5mg tablet PO SCH (08:17)
[2019-06-09] MEDS: magnesium 2GM in 50ml NS 50 ML IV PRN (08:18)
[2019-06-09] MEDS: sertraline 50mg tablet PO SCH (08:28)
[2019-06-09] MEDS: nystatin 15 GM powder TP SCH ×3 (08:30→20:50)
[2019-06-09] MEDS: budesonide 0.5mg/2ml UD nebule IH SCH ×2 (09:52→20:31)
[2019-06-09] MEDS: DOBUTamine-DoBUTrex 500mg/D5W 250 ML IV SCH (10:09)
[2019-06-09] MEDS: magnesium 4gm in 100ml NS 100 ML IV PRN (10:16)
[2019-06-09] MEDS ORDERED: lisinopril 2.5mg tablet PO ONE (11:25)
[2019-06-09] MEDS: furosemide inj 100 ML IV SCH ×2 (12:35→20:30)
[2019-06-09 14:41] LABS: ALBUMIN 1.8 G/DL (3.4-5.0); ANION GAP 1 (8-16); BLOOD UREA NITROGEN 21 MG/DL (7-18); BUN/CREATININE RATIO 24.4 (6.6-38.0); CALCIUM 7.6 MG/DL (8.5-10.1); CHLORIDE 98 MMOL/L (99-107); CREATININE 0.86 MG/DL (0.40-0.90); GLUCOSE 310 MG/DL (70-104); POTASSIUM 3.4 MMOL/L (3.5-5.1); SODIUM 129 MMOL/L (135-145); TOTAL CARBON DIOXIDE 30.4 MMOL/L (24-32); eGFR 66 ML/MIN
[2019-06-09 14:45] LABS: MAGNESIUM 12.7 MG/DL (1.5-2.4)
[2019-06-09] MEDS: tizanidine 4mg tablet PO PRN ×2 (15:04→23:02)
[2019-06-09 15:32] LABS: MAGNESIUM 2.2 MG/DL (1.5-2.4); POTASSIUM 3.4 MMOL/L (3.5-5.1)
[2019-06-09] MEDS: Neutra Phos packet PO PRN ×2 (17:30→20:51)
[2019-06-09] MEDS: potassium Cl 20 mEq SR tablet PO PRN ×2 (17:30→20:51)
--- NOTE | 2019-06-09 18:30 | NUR ---
Patient in room CICU 2006. I have received report from Batool SOTO and had the opportunity to ask questions and assume patient care.
[2019-06-09] MEDS ORDERED: carVEDilol 12.5mg tablet PO SCH (20:00)
[2019-06-09] MEDS: pramipexole 0.25mg tablet PO SCH (20:49)
[2019-06-09] MEDS: pravastatin 40mg tablet PO SCH (20:49)
[2019-06-09] MEDS: gabapentin 300mg capsule PO SCH (20:49)
[2019-06-09] MEDS: insulin glargine (Lantus) pen - multi-dose SQ SCH (20:50)
[2019-06-09 21:32] LABS: ALBUMIN 1.9 G/DL (3.4-5.0); ANION GAP 2 (8-16); BLOOD UREA NITROGEN 23 MG/DL (7-18); BUN/CREATININE RATIO 30.3 (6.6-38.0); CALCIUM 7.7 MG/DL (8.5-10.1); CHLORIDE 101 MMOL/L (99-107); CREATININE 0.76 MG/DL (0.40-0.90); GLUCOSE 171 MG/DL (70-104); MAGNESIUM 1.9 MG/DL (1.5-2.4); PHOSPHORUS 2.4 MG/DL (2.3-4.5); SODIUM 136 MMOL/L (135-145); TOTAL CARBON DIOXIDE 33.1 MMOL/L (24-32); eGFR 76 ML/MIN
[2019-06-10] VITALS (24 sets, daily range): BP systolic 95–109; BP diastolic 43–64
[2019-06-10] MEDS: albuterol 2.5 MG/3 ML nebule NEB SCH ×4 (02:00→19:51)
[2019-06-10 03:07] LABS: EOSINOPHILS # (AUTO) 0.3 X10'3 (0-0.9); MONOCYTES % (AUTO) 26.2 % (2-12)
[2019-06-10 03:09] LABS: BASOPHILS % (AUTO) 0.4 % (0-1); EOSINOPHILS % (AUTO) 2.3 % (0-6); HEMATOCRIT 27.2 % (35.0-45.0); LYMPHOCYTES # (AUTO) 0.3 X10'3 (1.1-4.8); LYMPHOCYTES % (AUTO) 2.9 % (21-51); MEAN CORPUSCULAR HEMOGLOBIN 27.4 PG (27.0-31.0); MEAN CORPUSCULAR HGB CONC 33.2 g/dL (33.0-36.5); MEAN CORPUSCULAR VOLUME 82.6 FL (78-98); MEAN PLATELET VOLUME 10.6 FL (7.4-10.4); MONOCYTES # (AUTO) 3.1 X10'3 (0-0.9); NEUTROPHILS % (AUTO) 68.2 % (42-75); PLATELET COUNT 112 X10'3 (140-440); RED BLOOD COUNT 3.29 X10'6 (4.20-5.60); RED CELL DISTRIBUTION WIDTH 17.1 % (11.5-14.5); WHITE BLOOD COUNT 11.7 X10'3 (4.5-11.0)
[2019-06-10 03:21] LABS: ALANINE AMINOTRANSFERASE 10 U/L (12-78); ALBUMIN 1.9 G/DL (3.4-5.0); ALBUMIN/GLOBULIN RATIO 0.7 (1.1-1.5); ALKALINE PHOSPHATASE 45 IU/L (46-116); ANION GAP -1 (8-16); ASPARTATE AMINO TRANSFERASE 12 U/L (10-37); BILIRUBIN,TOTAL 2.1 MG/DL (0.1-1.0); BLOOD UREA NITROGEN 22 MG/DL (7-18); BUN/CREATININE RATIO 30.6 (6.6-38.0); CALCIUM 7.5 MG/DL (8.5-10.1); CHLORIDE 101 MMOL/L (99-107); CREATININE 0.72 MG/DL (0.40-0.90); GLUCOSE 148 MG/DL (70-104); MAGNESIUM 1.5 MG/DL (1.5-2.4); PHOSPHORUS 2.4 MG/DL (2.3-4.5); POTASSIUM 3.7 MMOL/L (3.5-5.1); SODIUM 135 MMOL/L (135-145); TOTAL CARBON DIOXIDE 34.9 MMOL/L (24-32); TOTAL PROTEIN 4.8 G/DL (6.4-8.2); eGFR 81 ML/MIN
[2019-06-10 03:52] LABS: ANISOCYTOSIS 1+; PLATELET ESTIMATE DECREASED; TOTAL CELLS COUNTED 100
[2019-06-10 03:53] LABS: ACANTHOCYTES 3+; HYPOCHROMASIA 1+; SCHISTOCYTES 1+; TARGET CELLS FEW; TOXIC VACUOLATION 1+
[2019-06-10] MEDS: DOBUTamine-DoBUTrex 500mg/D5W 250 ML IV SCH ×2 (04:00→23:34)
--- NOTE | 2019-06-10 06:10 | NUR ---
Patient in room CICU 2006. I have received report from CHARLES Simeon and had the opportunity to ask questions and assume patient care.
--- NOTE | 2019-06-10 06:24 | NUR ---
Problems reprioritized. Patient report given, questions answered & plan of care reviewed with Marian SOTO.
[2019-06-10] MEDS: budesonide 0.5mg/2ml UD nebule IH SCH ×2 (07:52→19:51)
[2019-06-10] MEDS: K, MAG and/or Phos replacement - Verify level? MC SCH (08:00)
[2019-06-10] MEDS: potassium Cl 20 mEq SR tablet PO SCH (08:43)
[2019-06-10] MEDS: spironolactone 25 MG tablet PO SCH (08:43)
[2019-06-10] MEDS: levoTHYROXINE 25mcg tablet PO SCH (08:43)
[2019-06-10] MEDS: sertraline 50mg tablet PO SCH (08:43)
[2019-06-10] MEDS: amiodarone 200mg tablet PO SCH (08:44)
[2019-06-10] MEDS: pantoprazole 40mg Tablet.DR PO SCH ×2 (08:44→20:35)
[2019-06-10] MEDS: apixaban 5mg tablet PO SCH ×2 (08:44→20:35)
[2019-06-10] MEDS: nystatin 15 GM powder TP SCH ×3 (08:46→20:37)
[2019-06-10 09:32] LABS: ALBUMIN 1.9 G/DL (3.4-5.0); ANION GAP -2 (8-16); BLOOD UREA NITROGEN 21 MG/DL (7-18); BUN/CREATININE RATIO 26.3 (6.6-38.0); CALCIUM 7.5 MG/DL (8.5-10.1); CHLORIDE 101 MMOL/L (99-107); GLUCOSE 183 MG/DL (70-104); MAGNESIUM 1.4 MG/DL (1.5-2.4); PHOSPHORUS 2.4 MG/DL (2.3-4.5); SODIUM 134 MMOL/L (135-145); TOTAL CARBON DIOXIDE 34.7 MMOL/L (24-32); eGFR 71 ML/MIN
[2019-06-10] MEDS: magnesium 2GM in 50ml NS 50 ML IV PRN (09:52)
[2019-06-10] MEDS: oxyCODONE/APAP 10/325mg tablet PO PRN ×2 (10:23→21:59)
[2019-06-10] MEDS: magnesium Cl slow-release 64mg tablet PO PRN ×2 (10:23→23:28)
--- NOTE | 2019-06-10 11:59 | NUR ---
Confirmed with patient LBM was 06/01/19 prior to admit. No pain or discomfort, bowel sounds present. Spoke with BEATRIS Bates and received new bowel care orders.
[2019-06-10] MEDS ORDERED: magnesium hydroxide 30ml (MOM) UD suspension PO PRN (12:00)
[2019-06-10] MEDS ORDERED: bisacodyl 10mg suppository rectal RC PRN (12:00)
[2019-06-10] MEDS: lisinopril 2.5mg tablet PO SCH (12:17)
--- NOTE | 2019-06-10 12:35 | NUR ---
Patient requested recheck on blood sugar prior to lunch.
--- NOTE | 2019-06-10 14:32 | NUR ---
Requested dietary consult for patient. Patient requesting to speak with them regarding her nutrition and supplementation.
[2019-06-10 15:41] LABS: ALBUMIN 1.9 G/DL (3.4-5.0); ANION GAP 0 (8-16); BLOOD UREA NITROGEN 22 MG/DL (7-18); BUN/CREATININE RATIO 26.8 (6.6-38.0); CALCIUM 7.6 MG/DL (8.5-10.1); CHLORIDE 100 MMOL/L (99-107); CREATININE 0.82 MG/DL (0.40-0.90); GLUCOSE 199 MG/DL (70-104); MAGNESIUM 1.4 MG/DL (1.5-2.4); PHOSPHORUS 2.2 MG/DL (2.3-4.5); POTASSIUM 3.9 MMOL/L (3.5-5.1); SODIUM 135 MMOL/L (135-145); eGFR 69 ML/MIN
--- NOTE | 2019-06-10 18:19 | NUR ---
Problems reprioritized. Patient report given, questions answered & plan of care reviewed with CHARLES Burden.
--- NOTE | 2019-06-10 18:44 | NUR ---
Patient in room CICU 2006. I have received report from Marian SOTO and had the opportunity to ask questions and assume patient care.
[2019-06-10] MEDS: normal saline 1000ml 1,000 ML IV SCH (19:30)
[2019-06-10] MEDS: pravastatin 40mg tablet PO SCH (20:35)
[2019-06-10] MEDS: gabapentin 300mg capsule PO SCH (20:36)
[2019-06-10] MEDS: carvedilol 6.25mg tablet PO SCH (20:36)
[2019-06-10] MEDS: pramipexole 0.25mg tablet PO SCH (20:36)
[2019-06-10] MEDS: docusate sod 100mg capsule PO SCH (20:37)
[2019-06-10] MEDS: ferrous sulfate 325mg tablet PO SCH (20:37)
--- NOTE | 2019-06-10 21:00 | NUR ---
unable to weigh patient bed scale malfunction.
[2019-06-10 21:33] LABS: ALBUMIN 1.9 G/DL (3.4-5.0); ANION GAP 1 (8-16); BLOOD UREA NITROGEN 21 MG/DL (7-18); BUN/CREATININE RATIO 31.8 (6.6-38.0); CALCIUM 7.2 MG/DL (8.5-10.1); CHLORIDE 99 MMOL/L (99-107); CREATININE 0.66 MG/DL (0.40-0.90); GLUCOSE 231 MG/DL (70-104); PHOSPHORUS 2.2 MG/DL (2.3-4.5); POTASSIUM 3.9 MMOL/L (3.5-5.1); SODIUM 133 MMOL/L (135-145); eGFR 89 ML/MIN
[2019-06-10] MEDS: tizanidine 4mg tablet PO PRN (21:58)
[2019-06-10] MEDS: insulin glargine (Lantus) pen - multi-dose SQ SCH (22:02)
[2019-06-10 22:39] LABS: MAGNESIUM 1.2 MG/DL (1.5-2.4)
[2019-06-10] MEDS ORDERED: Neutra Phos packet PO PRN (23:15)
[2019-06-10] MEDS: Neutra Phos packet PO PRN (23:28)
[2019-06-11] VITALS (19 sets, daily range): BP systolic 96–123; BP diastolic 44–76
[2019-06-11] MEDS: albuterol 2.5 MG/3 ML nebule NEB SCH ×3 (02:43→16:03)
[2019-06-11 03:22] LABS: BASOPHILS # (AUTO) 0.1 X10'3 (0-0.2); BASOPHILS % (AUTO) 0.9 % (0-1); EOSINOPHILS # (AUTO) 0.3 X10'3 (0-0.9); EOSINOPHILS % (AUTO) 2.4 % (0-6); HEMATOCRIT 26.8 % (35.0-45.0); HEMOGLOBIN 8.9 g/dl (12.0-16.0); LYMPHOCYTES # (AUTO) 0.9 X10'3 (1.1-4.8); MEAN CORPUSCULAR HEMOGLOBIN 27.5 PG (27.0-31.0); MEAN CORPUSCULAR VOLUME 83.5 FL (78-98); MEAN PLATELET VOLUME 10.2 FL (7.4-10.4); MONOCYTES # (AUTO) 1.3 X10'3 (0-0.9); MONOCYTES % (AUTO) 11.7 % (2-12); NEUTROPHILS # (AUTO) 8.3 X10'3 (1.8-7.7); PLATELET COUNT 125 X10'3 (140-440); RED BLOOD COUNT 3.21 X10'6 (4.20-5.60); RED CELL DISTRIBUTION WIDTH 17.2 % (11.5-14.5); WHITE BLOOD COUNT 10.8 X10'3 (4.5-11.0)
[2019-06-11 03:57] LABS: ALANINE AMINOTRANSFERASE 9 U/L (12-78); ALBUMIN 1.6 G/DL (3.4-5.0); ALBUMIN/GLOBULIN RATIO 0.6 (1.1-1.5); ALKALINE PHOSPHATASE 48 IU/L (46-116); ANION GAP 1 (8-16); ASPARTATE AMINO TRANSFERASE 13 U/L (10-37); BILIRUBIN,TOTAL 2.1 MG/DL (0.1-1.0); BLOOD UREA NITROGEN 18 MG/DL (7-18); BUN/CREATININE RATIO 28.6 (6.6-38.0); CALCIUM 6.9 MG/DL (8.5-10.1); CHLORIDE 99 MMOL/L (99-107); CREATININE 0.63 MG/DL (0.40-0.90); GLUCOSE 289 MG/DL (70-104); MAGNESIUM 1.2 MG/DL (1.5-2.4); PHOSPHORUS 2.2 MG/DL (2.3-4.5); POTASSIUM 3.7 MMOL/L (3.5-5.1); SODIUM 133 MMOL/L (135-145); TOTAL PROTEIN 4.5 G/DL (6.4-8.2); eGFR > 90 ML/MIN
[2019-06-11] MEDS: magnesium Cl slow-release 64mg tablet PO PRN (05:02)
[2019-06-11] MEDS: Neutra Phos packet PO PRN (05:02)
--- NOTE | 2019-06-11 06:15 | NUR ---
Problems reprioritized. Patient report given, questions answered & plan of care reviewed with Shady SOTO.
[2019-06-11] MEDS: K, MAG and/or Phos replacement - Verify level? MC SCH (06:50)
[2019-06-11] MEDS: docusate sod 100mg capsule PO SCH (07:49)
[2019-06-11] MEDS: nystatin 15 GM powder TP SCH ×2 (07:49→13:00)
[2019-06-11] MEDS: ferrous sulfate 325mg tablet PO SCH (07:49)
[2019-06-11] MEDS: carvedilol 6.25mg tablet PO SCH (07:50)
[2019-06-11] MEDS: sertraline 50mg tablet PO SCH (07:50)
[2019-06-11] MEDS: amiodarone 200mg tablet PO SCH (07:50)
[2019-06-11] MEDS: potassium Cl 20 mEq SR tablet PO SCH (07:50)
[2019-06-11] MEDS: pantoprazole 40mg Tablet.DR PO SCH (07:50)
[2019-06-11] MEDS: apixaban 5mg tablet PO SCH (07:50)
[2019-06-11] MEDS: levoTHYROXINE 25mcg tablet PO SCH (07:50)
[2019-06-11] MEDS: spironolactone 25 MG tablet PO SCH (07:51)
[2019-06-11] MEDS: budesonide 0.5mg/2ml UD nebule IH SCH (08:44)
--- NOTE | 2019-06-11 10:30 | NUR ---
Bedside [facility] rounds in place. MD Marr at bedside, nursing, viscose cellar charge hand, dietary, respiratory, and pharmacy. MD aware of current status, lab results. made aware of patient without BM x10 days. Orders received for lactulose. MD aware of patient pending discharge for today and continued communication with [employer] for dobutamine drip required for D/C. Spoke to disability case manager, Yris, at bedside regarding dobutamine drip. Per case management, awaiting final word from [employer].
[2019-06-11] MEDS ORDERED: lactulose 20gm/30ml cup PO ONE (11:20)
--- NOTE | 2019-06-11 11:22 | NUR ---
Phone call placed to Dr Stringer regarding patient's planned doshca Addendum: 06/11/19 at 1123 by Shady Argueta RN discharge for today. Per MD, inform patient to follow up with him in office next week.
--- NOTE | 2019-06-11 11:30 | NUR ---
Md Aguilar at bedside. Changes made to D/C med orders. MD aware of current status, labs. MD made aware of lactulose given for no BM, and issues regarding dobutamine drip for D/C. spoke with [employer] over the phone regarding drip.
--- NOTE | 2019-06-11 11:44 | NUR ---
F/u: Pt pending d/c today. To remain on pureed/thin liquids per SP recs today. PO 25-50% fluctuating though no BM 10 days yet only receiving colace routinely post-op. ELI notified who requests lactulose per surgeon approval prior to d/c. Pt on commode currently attempting BM per RN. Addendum: 06/11/19 at [address] Amended: Links added. Addendum: 06/11/19 at [address] F/u: Pt pending d/c today. To remain on pureed/thin liquids per SP recs today. PO 25-50% fluctuating though no BM 10 days yet only receiving colace routinely post-op. ELI notified MD who requests lactulose per surgeon approval prior to d/c. Pt on commode currently attempting BM per RN. -5.5kg bed scale wt likely r/t -3.78L fluid balance past 2 days so far receiving lasix.
[2019-06-11] MEDS: furosemide inj 100 ML IV SCH (12:35)
[2019-06-11 12:44] LABS: ANION GAP -2 (8-16); BLOOD UREA NITROGEN 21 MG/DL (7-18); BUN/CREATININE RATIO 28.4 (6.6-38.0); CALCIUM 7.8 MG/DL (8.5-10.1); CHLORIDE 100 MMOL/L (99-107); CREATININE 0.74 MG/DL (0.40-0.90); GLUCOSE 130 MG/DL (70-104); MAGNESIUM 1.3 MG/DL (1.5-2.4); PHOSPHORUS 2.6 MG/DL (2.3-4.5); POTASSIUM 4.3 MMOL/L (3.5-5.1); SODIUM 135 MMOL/L (135-145); eGFR 78 ML/MIN
[2019-06-11] MEDS ORDERED: SPIR25TA PO (12:48)
[2019-06-11] MEDS ORDERED: CARV6.253 PO (12:48)
[2019-06-11] MEDS ORDERED: FURO-150 PO (12:48)
[2019-06-11] MEDS ORDERED: LISI2.5T2 PO (12:48)
[2019-06-11] MEDS: lisinopril 2.5mg tablet PO SCH (13:04)
--- NOTE | 2019-06-11 18:30 | NUR ---
Patient discharged via wheelchair with daughter, son-in-law, and at bedside. All belongings with patient, confirmed by patient. desktop publisher Angel at bedside as second RN check for paperwork. Education pamphlet sent home with patient. Pharmacy called and scripts sent via telephone, confirmed by Radha, pharmacist at [facility]. Patient counselled on calling in follow up appointments with PCP, Jeff, and Pamela with patient stating she understands. PICC line in place and dobutamine drip infusing per [email or web address] pump. WEI RN at bedside gave education to both patient and on use of pump and med. unit manager rn, Yris, to place follow up call tomorrow regarding finalized home Addendum: 06/11/19 at 1838 by Shady Argueta RN health arrangements
== END 2019-06-11 18:30 | disposition home health service (06) | DRG 335 ==
LOC: ER 11:20 → ED HOLD 14:32 → MED 3N 15:15 → SUR 3N 06-03 14:50 → PCU 3S 06-04 11:45 → CICU 2S 06-06 15:14
PROVIDERS: ADMIT Internal Medicine; ATTEND Internal Medicine Critical Care Medicine
PROC: 0DNW4ZZ Release Peritoneum, Percutaneous Endoscopic Approach (ICD-10-PCS; 2019-06-03)
PROC: 0WUF4JZ Supplement Abdominal Wall with Synthetic Substitute, Percutaneous Endoscopic Approach (ICD-10-PCS; principal; 2019-06-03 13:50)
PROC: 04HY32Z Insertion of Monitoring Device into Lower Artery, Percutaneous Approach (ICD-10-PCS; 2019-06-06)
PROC: 4A133B1 Monitoring of Arterial Pressure, Peripheral, Percutaneous Approach (ICD-10-PCS; 2019-06-06)
PROC: 4A133J1 Monitoring of Arterial Pulse, Peripheral, Percutaneous Approach (ICD-10-PCS; 2019-06-06)
DX: K43.0 Incisional hernia with obstruction, without gangrene (principal); I50.23 Acute on chronic systolic (congestive) heart failure; I48.20 Chronic atrial fibrillation, unspecified; E87.1 Hypo-osmolality and hyponatremia; I42.0 Dilated cardiomyopathy; N17.9 Acute kidney failure, unspecified; E11.42 Type 2 diabetes mellitus with diabetic polyneuropathy; E78.00 Pure hypercholesterolemia, unspecified; E78.5 Hyperlipidemia, unspecified; F12.90 Cannabis use, unspecified, uncomplicated; F17.290 Nicotine dependence, other tobacco product, uncomplicated; G89.29 Other chronic pain; I11.0 Hypertensive heart disease with heart failure; I25.10 Atherosclerotic heart disease of native coronary artery without angina pectoris; J43.9 Emphysema, unspecified; K21.9 Gastro-esophageal reflux disease without esophagitis; M54.9 Dorsalgia, unspecified; F32.9 Major depressive disorder, single episode, unspecified; K22.2 Esophageal obstruction; I25.5 Ischemic cardiomyopathy; K66.0 Peritoneal adhesions (postprocedural) (postinfection); D64.9 Anemia, unspecified; N28.1 Cyst of kidney, acquired; Z79.4 Long term (current) use of insulin; Z79.01 Long term (current) use of anticoagulants; Z82.49 Family history of ischemic heart disease and other diseases of the circulatory system; Z90.49 Acquired absence of other specified parts of digestive tract; Z90.710 Acquired absence of both cervix and uterus; Z90.81 Acquired absence of spleen; Z95.810 Presence of automatic (implantable) cardiac defibrillator; Z88.8 Allergy status to other drugs, medicaments and biological substances; Z91.048 Other nonmedicinal substance allergy status
CPT/HCPCS: 36415; 36569; 71045; 71046; 74176; 76937; 80048; 80053; 80069; 81001; 82948; 83036; 83690; 83735; 83880; 84100; 84132; 84295; 84484; 85025; 87081; 92508; 92616; 93005; 94640; 94760; 96374; 97110; 97116; 97162; 97530; 97535; 99285; A4215; A4618; A7000; C1781; C9113; G0378; J0131; J0690; J0694; J1160; J1170; J1250; J1815; J1940; J2001; J2250; J2270; J2405; J2710; J3010; J3475; J3490; J7030; J7040; J7120; J7614; J7626; P9045; Q2037